=== PATIENT | male | born 1990 | race African-American/Black ===

== ENCOUNTER 2017-09-09 23:40 | Emergency (ER) | payer OTHER, MEDICAID ==
[2017-09-09 23:56] VITALS: BP 147/78
[2017-09-10] MEDS ORDERED: NS 1000 ML 1,000 ML IV SCH (01:00)
[2017-09-10 01:02] LABS: BASOPHILS % (AUTO) 0.5 % (0.2-1.0); EOSINOPHILS % (AUTO) 0.5 % (0.9-2.9); HEMATOCRIT 43.8 % (42.0-54.0); HEMOGLOBIN 15.1 g/dL (13.5-18.0); MEAN CORPUSCULAR HEMOGLOBIN 33.8 pg (27.0-34.0); MEAN CORPUSCULAR HGB CONC 34.5 g/dL (33.0-35.0); MEAN CORPUSCULAR VOLUME 98.2 fL (80.0-100.0); MONOCYTES # (AUTO) 0.3 x10^3/uL (0.3-0.8); MONOCYTES % (AUTO) 5.9 % (0.0-13.0); NEUTROPHILS # (AUTO) 3.8 x10^3/uL (2.2-4.8); NEUTROPHILS % (AUTO) 74.1 % (42.0-75.0); PLATELET COUNT 200 X10^3/uL (150.0-450.0); RED BLOOD COUNT 4.46 X10^6/uL (4.7-6.0); RED CELL DISTRIBUTION WIDTH 12.6 % (11.6-16.5); WHITE BLOOD COUNT 5.1 X10^3/uL (3.6-10.0)
[2017-09-10 01:07] LABS: BLOOD UREA NITROGEN 4 mg/dL (7-18); CALCIUM 8.8 mg/dL (8.5-10.1); CARBON DIOXIDE 28.4 mmol/L (21-32); CHLORIDE 98 mmol/L (98-107); CREATININE 0.47 mg/dL (0.70-1.30); SODIUM 137 mmol/L (136-145); eGFR BLACK RACES > 60 (>60); eGFR NON BLACK RACES > 60 (>60)
--- NOTE | 2017-09-10 01:15 | DR.GENAD ---
HPI - Complaint/Symptoms Chief Complaint Doctors Comments: Patient presented to the ED Via EMS secondary to a seizure noted at home. Mom reports that he has taken his last phenytoin anticonvulsant. She denies fever. 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 Chief Complaint:: SEIZURES - Source History Provided: Parent - Mode of Arrival Mode of Arrival: EMS - Timing Onset of Chief Complaint: 09/09/17 PMH - PMH Past Medical History: Yes Past Medical History: Seizures Past Medical History Comment: CEREBRAL PALSY Past Surgical History: Yes Surgical History: Ortho Surgery, Other Past Surgical History Comment: PEG TUBE; BACK SURGERY; LEG SURGERY - Family History History of Family Medical Conditions: No Family Medical History: Diabetes Mellitus - Social History Does patient currently use any type of tobacco product: No Have you used tobacco products in the last 12 months: No Type of Tobacco Use: None Alcohol Use: None Do you use any recreational Drugs:: No Lives With: Mom Lives Where: Home - infectious screening In the last 2 months have you had wt loss of >10#?: NO Have you had fever, night sweats or hemotysis?: No Have you traveled outside the country in the last 6 months?: No Isolation: Standard ROS - Review of Systems Constitutional: No Symptoms Reported Eyes: No Symptoms Reported ENTM: No Symptoms Reported Respiratoy: No Symptoms Reported Cardiovascular: No Symptoms Reported Gastrointestinal/Abdominal: No Symptoms Reported Genitourinary: No Symptoms Reported Neurological: Seizure Musculoskeletal: Other (contractures of extremities both upper and lower) Integumentary: No Symptoms Reported Hematologic/Lymphatic: No Symptoms Reported Endocrine: No Symptoms Reported Psychiatric: No Symptoms Reported All Other Systems: Reviewed and Negative PE - Vital Signs Vitals: Temperature 100.5 F Pulse Rate 108 Respiratory Rate 25 Blood Pressure [Left Arm] 114/78 Blood Pressure [Left Calf] 130/84 Blood Pressure 147/78 - General Limitations: No Limitations General Appearance: Alert, In No Apparent Distress - Head Head Exam: Normal Inspection, Atraumatic - Eyes Eye exam: Normal Appearance, PERRL, EOMI - ENT ENT Exam: Normal Exam External Ear Exam: Normal External Inspection TM/Canal Exam: Bilateral Normal Nose Exam: Normal Nose Exam Mouth Exam: Normal Inspection Throat Exam: Normal Inspection - Neck Neck Exam: Normal Inspection, Full ROM - Chest Chest Inspection: Normal Inspection - Respiratory Respiratory Exam: Normal Lung Sounds Bilat Respiratory Exam: Bilateral Clear to Auscultation - Cardiovascular Cardiovascular Exam: Regular Rate, Normal Rhythm - Abdominal Exam Abdominal Exam: Normal Inspection, Normal Bowel Sounds Abdominal Tenderness: negative: RUQ, RLQ, LUQ, LLQ, Epigastrium, Suprapubic, Diffuse, Mild, Moderate, Severe, Other - Extremities Extremities Exam: Normal Capillary Refill - Back Back Exam: Normal Inspection - Neurologic Neurological Exam: Oriented X3, CN II-XII Intact - Psychiatric Psychiatric Exam: Normal Affect, Normal Mood - Skin Skin Exam: Warm, Dry, Intact Course - Reevaluation 1st: Improved ROR - Labs Reviewed Result Diagrams: 09/10/17 00:45 09/10/17 00:45 Laboratory: WBC 5.1 X10^3/uL (3.6-10.0) 09/10/17 00:45 RBC 4.46 X10^6/uL (4.7-6.0) L 09/10/17 00:45 Hgb 15.1 g/dL (13.5-18.0) 09/10/17 00:45 Hct 43.8 % (42.0-54.0) 09/10/17 00:45 MCV 98.2 fL (80.0-100.0) 09/10/17 00:45 MCH 33.8 pg (27.0-34.0) 09/10/17 00:45 MCHC 34.5 g/dL (33.0-35.0) 09/10/17 00:45 RDW 12.6 % (11.6-16.5) 09/10/17 00:45 Plt Count 200 X10^3/uL (150.0-450.0) 09/10/17 00:45 MPV 8.0 fL (7.4-11.0) 09/10/17 00:45 Neut % 74.1 % (42.0-75.0) 09/10/17 00:45 Lymph % 19.0 % (21.0-51.0) L 09/10/17 00:45 [place] % 5.9 % (0.0-13.0) 09/10/17 00:45 Eos % 0.5 % (0.9-2.9) L 09/10/17 00:45 Baso % 0.5 % (0.2-1.0) 09/10/17 00:45 Neut # 3.8 x10^3/uL (2.2-4.8) 09/10/17 00:45 Lymph # 1.0 X10^3/uL (1.3-2.9) L 09/10/17 00:45 [place] # 0.3 x10^3/uL (0.3-0.8) 09/10/17 00:45 Eos # 0.0 x10^3/uL (0.0-0.2) 09/10/17 00:45 Baso # 0.0 X10^3/uL (0.0-0.1) 09/10/17 00:45 Absolute Nucleated RBC 0.0 /100WBC 09/10/17 00:45 Sodium 137 mmol/L (136-145) 09/10/17 00:45 Corrected Sodium TNP 09/10/17 00:45 Potassium 3.5 mmol/L (3.5-5.1) 09/10/17 00:45 Chloride 98 mmol/L (98-107) 09/10/17 00:45 Carbon Dioxide 28.4 mmol/L (21-32) 09/10/17 00:45 BUN 4 mg/dL (7-18) L 09/10/17 00:45 Creatinine 0.47 mg/dL (0.70-1.30) L 09/10/17 00:45 Est GFR (MDRD) Af Amer > 60 (>60) 09/10/17 00:45 Est GFR (MDRD) Non-Af > 60 (>60) 09/10/17 00:45 Glucose 105 mg/dL (65-99) H 09/10/17 00:45 Calcium 8.8 mg/dL (8.5-10.1) 09/10/17 00:45 - Diagnosis Discharge Problem: Seizure disorder - Discharge Plan Condition: Stable - Follow ups/Referrals Follow ups/Referrals: TAMIKO AMOS [Primary Care Provider] - 3 days - Instructions
[2017-09-10] MEDS ORDERED: DILANTIN INJ 100 MG VIAL IVP ONE ×3 (02:27→03:26)
[2017-09-10] MEDS ORDERED: ATIVAN INJ 2 MG VIAL ONE (03:13)
[2017-09-10] MEDS ORDERED: ATIVAN INJ 2 MG VIAL IVP ONE ×2 (03:16→03:20)
[2017-09-10] MEDS ORDERED: CEREBYX INJ IVP ONE (03:24)
[2017-09-10] MEDS ORDERED: CEREBYX INJ ONE (03:30)
[2017-09-10] MEDS ORDERED: NS 50 ML IV 50 ML IV ONE (03:31)
== END 2017-09-10 04:14 | disposition home or self-care (01) ==
LOC: ER 23:44
DX: G40.909 Epilepsy, unspecified, not intractable, without status epilepticus (principal)
CPT/HCPCS: 36415; 36591; 80048; 80185; 85025; 96365; 99282; 99283; A4222; S0078; J1165; J2060

== ENCOUNTER 2017-09-18 13:49 | Emergency (ER) | payer OTHER, MEDICAID ==
[2017-09-18 13:59] VITALS: BMI 22.9
[2017-09-18] MEDS ORDERED: ATIVAN INJ 2 MG VIAL IVP ONE (13:59)
[2017-09-18] MEDS ORDERED: ATIVAN INJ 2 MG VIAL ONE (14:00)
[2017-09-18] MEDS ORDERED: CEREBYX INJ IVP ONE (14:01)
--- NOTE | 2017-09-18 14:06 | DR.SEIZA ---
HPI - Time Seen Time seen: 13:55 - Primary Care Physician Primary Care Physician: ahmet - Complaints Chief Complaint:: EMS stated "The family stated he had numerous seizures that started last night. They gave him all his medications(keppra,phenobarbitol, carbamazepine and valium) Upon our arrival, the patient was postictial lasting approx 25 minutes." - Source History Provided: Guardian, EMS - Mode of Arrival Mode of Arrival: EMS - Timing Onset of Chief Complaint: 09/17/17 PMH - PMH Past Medical History: Yes Past Medical History: Seizures Past Medical History Comment: cerebral palsy Past Surgical History: Yes Surgical History: Ortho Surgery, Other Past Surgical History Comment: peg tube, port-a-cath - Family History History of Family Medical Conditions: Yes Family Medical History: Diabetes Mellitus - Social History Does patient currently use any type of tobacco product: No Have you used tobacco products in the last 12 months: No Does any household member use tobacco: No Do you use any recreational Drugs:: No Lives With: Family - infectious screening In the last 2 months have you had wt loss of >10#?: NO Have you had fever, night sweats or hemotysis?: No Have you traveled outside the country in the last 6 months?: No Isolation: Standard ROS - Review of Systems Eyes: No Symptoms Reported ENTM: No Symptoms Reported Respiratoy: No Symptoms Reported Cardiovascular: No Symptoms Reported Gastrointestinal/Abdominal: No Symptoms Reported Genitourinary: No Symptoms Reported Neurological: Seizure, Other (non ambulatory) Musculoskeletal: Other (contractures of extremities) Integumentary: No Symptoms Reported Hematologic/Lymphatic: No Symptoms Reported Endocrine: No Symptoms Reported Psychiatric: No Symptoms Reported All Other Systems: Reviewed and Negative PE - Vital Signs Vitals: Temperature 98.0 F Pulse Rate [Left Popliteal] 84 Pulse Rate 132 Respiratory Rate 18 Blood Pressure [Left Arm] 114/78 Blood Pressure [Left Calf] 100/58 Blood Pressure 141/92 O2 Sat by Pulse Oximetry 94 - General Limitations: No Limitations General Appearance: Alert - Head Head Exam: Normal Inspection, Atraumatic Head Exam Physical: Laceration - Eyes Eye exam: Normal Appearance, PERRL, EOMI Eyelids: Normal Inspection: Bilateral Pupils: Regular, Round: Bilateral Sclera/Conjunctival: Normal Inspection: Bilateral Anterior Chamber: Normal Inspection: Bilateral - ENT ENT Exam: Normal Exam, Normal Oropharynx Mouth Exam: Normal Inspection. negative: Drooling, Trismus - Neck Neck Exam: Normal Inspection, Full ROM - Chest Chest Inspection: Normal Inspection - Respiratory Respiratory Exam: Normal Lung Sounds Bilat Respiratory Exam: Bilateral Clear to Auscultation - Cardiovascular Cardiovascular Exam: Regular Rate, Normal Rhythm - Abdominal Exam Abdominal Exam: Normal Inspection, Normal Bowel Sounds Abdominal Tenderness: Other (non reported) - Extremities Extremities Exam: Other (dysmorphic bilaterally) - Back Back Exam: Normal Inspection - Neurologic Neurological Exam: Alert Cerebellar Function: Other (non ambulatory) - Psychiatric Psychiatric Exam: Normal Affect, Normal Mood - Skin Skin Exam: Warm, Dry, Intact Course - Treatment Treatment: phosphentoin 1gm IV, advised mom to increase Keppra to one additional gram per day to rase drug level. Appointment made for next week with Dr Gates - Reevaluation 1st: Improved ROR - Labs Reviewed Laboratory Results Reviewed?: Yes (phenytoin 1.2mcg/L) Result Diagrams: 09/18/17 14:04 09/18/17 14:04 Laboratory: WBC 5.4 X10^3/uL (3.6-10.0) 09/18/17 14:04 RBC 4.53 X10^6/uL (4.7-6.0) L 09/18/17 14:04 Hgb 15.3 g/dL (13.5-18.0) 09/18/17 14:04 Hct 44.2 % (42.0-54.0) 09/18/17 14:04 MCV 97.8 fL (80.0-100.0) 09/18/17 14:04 MCH 33.9 pg (27.0-34.0) 09/18/17 14:04 MCHC 34.7 g/dL (33.0-35.0) 09/18/17 14:04 RDW 12.9 % (11.6-16.5) 09/18/17 14:04 Plt Count 233 X10^3/uL (150.0-450.0) 09/18/17 14:04 MPV 7.4 fL (7.4-11.0) 09/18/17 14:04 Neut % 45.4 % (42.0-75.0) 09/18/17 14:04 Lymph % 44.0 % (21.0-51.0) 09/18/17 14:04 [place] % 8.0 % (0.0-13.0) 09/18/17 14:04 Eos % 2.1 % (0.9-2.9) 09/18/17 14:04 Baso % 0.5 % (0.2-1.0) 09/18/17 14:04 Neut # 2.5 x10^3/uL (2.2-4.8) 09/18/17 14:04 Lymph # 2.4 X10^3/uL (1.3-2.9) 09/18/17 14:04 [place] # 0.4 x10^3/uL (0.3-0.8) 09/18/17 14:04 Eos # 0.1 x10^3/uL (0.0-0.2) 09/18/17 14:04 Baso # 0.0 X10^3/uL (0.0-0.1) 09/18/17 14:04 Absolute Nucleated RBC 0.1 /100WBC 09/18/17 14:04 Sodium 136 mmol/L (136-145) 09/18/17 14:04 Corrected Sodium 137 mmol/L (136-145) 09/18/17 14:04 Potassium 3.6 mmol/L (3.5-5.1) 09/18/17 14:04 Chloride 98 mmol/L (98-107) 09/18/17 14:04 Carbon Dioxide 28.7 mmol/L (21-32) 09/18/17 14:04 BUN 3 mg/dL (7-18) L 09/18/17 14:04 Creatinine 0.60 mg/dL (0.70-1.30) L 09/18/17 14:04 Est GFR (MDRD) Af Amer > 60 (>60) 09/18/17 14:04 Est GFR (MDRD) Non-Af > 60 (>60) 09/18/17 14:04 Glucose 134 mg/dL (65-99) H 09/18/17 14:04 Calcium 8.6 mg/dL (8.5-10.1) 09/18/17 14:04 Corrected Calcium TNP 09/18/17 14:04 Total Bilirubin 0.20 mg/dL (0.2-1.0) 09/18/17 14:04 AST 18 Units/L (15-37) 09/18/17 14:04 ALT 38 Units/L (12-78) 09/18/17 14:04 Alkaline Phosphatase 57 Units/L (46-116) 09/18/17 14:04 C-Reactive Protein 13.90 mg/L (0-3.0) H 09/18/17 14:04 Total Protein 8.1 g/dL (6.4-8.2) 09/18/17 14:04 Albumin 3.7 g/dL (3.4-5.0) 09/18/17 14:04 Globulin 4.4 g/dL (2.5-4.5) 09/18/17 14:04 Albumin/Globulin Ratio 0.8 Ratio (1.1-2.1) L 09/18/17 14:04 Phenytoin 1.2 ug/mL (10-20) L 09/18/17 14:04 Carbamazepine 9.2 ug/mL (4-12) 09/18/17 14:04 - Diagnosis Discharge Problem: Subtherapeutic phenytoin level - Discharge Plan Condition: Stable - Follow ups/Referrals Follow ups/Referrals: TAMIKO AMOS [Primary Care Provider] - 3 days - Instructions Instructions: Epilepsy
[2017-09-18] MEDS ORDERED: CEREBYX INJ ONE (14:09)
[2017-09-18] MEDS ORDERED: NS 100 ML IV 100 ML IV ONE (14:09)
[2017-09-18 14:13] LABS: BASOPHILS % (AUTO) 0.5 % (0.2-1.0); EOSINOPHILS # (AUTO) 0.1 x10^3/uL (0.0-0.2); EOSINOPHILS % (AUTO) 2.1 % (0.9-2.9); HEMATOCRIT 44.2 % (42.0-54.0); HEMOGLOBIN 15.3 g/dL (13.5-18.0); LYMPHOCYTES # (AUTO) 2.4 X10^3/uL (1.3-2.9); MEAN CORPUSCULAR HEMOGLOBIN 33.9 pg (27.0-34.0); MEAN CORPUSCULAR HGB CONC 34.7 g/dL (33.0-35.0); MEAN CORPUSCULAR VOLUME 97.8 fL (80.0-100.0); MEAN PLATELET VOLUME 7.4 fL (7.4-11.0); MONOCYTES # (AUTO) 0.4 x10^3/uL (0.3-0.8); NEUTROPHILS # (AUTO) 2.5 x10^3/uL (2.2-4.8); NEUTROPHILS % (AUTO) 45.4 % (42.0-75.0); PLATELET COUNT 233 X10^3/uL (150.0-450.0); RED BLOOD COUNT 4.53 X10^6/uL (4.7-6.0); RED CELL DISTRIBUTION WIDTH 12.9 % (11.6-16.5); WHITE BLOOD COUNT 5.4 X10^3/uL (3.6-10.0)
[2017-09-18 14:27] LABS: ALANINE AMINOTRANSFERASE 38 Units/L (12-78); ALBUMIN 3.7 g/dL (3.4-5.0); ALKALINE PHOSPHATASE 57 Units/L (46-116); ASPARTATE AMINO TRANSFERASE 18 Units/L (15-37); BLOOD UREA NITROGEN 3 mg/dL (7-18); CALCIUM 8.6 mg/dL (8.5-10.1); CARBON DIOXIDE 28.7 mmol/L (21-32); CHLORIDE 98 mmol/L (98-107); COR NA(FOR HYPERGLY) 137 mmol/L (136-145); SODIUM 136 mmol/L (136-145); TOTAL PROTEIN 8.1 g/dL (6.4-8.2); eGFR BLACK RACES > 60 (>60); eGFR NON BLACK RACES > 60 (>60)
[2017-09-18 16:11] VITALS: BP 100/58
== END 2017-09-18 17:06 | disposition home or self-care (01) ==
LOC: ER 14:00
DX: R79.1 Abnormal coagulation profile (principal)
CPT/HCPCS: 36415; 80053; 80156; 80185; 85025; 86140; 96365; 96367; 96374; 96375; 99283; S0078; J2060

== ENCOUNTER 2018-03-21 22:37 | Inpatient (IN) | payer OTHER, MEDICAID ==
--- NOTE | 2018-03-21 23:16 | DR.SEIZA ---
HPI - Time Seen Time seen: 11:03 - Primary Care Physician Primary Care Physician: TAMIKO AMOS - Complaints Chief Complaint Doctors Comments: As noted in nurses's notes. Hx. was obtained from the pt's. mom as he is non-verbal due to chronic medical problem. Reportedly, he has not had a fever, of course they didn;t check his temp. at home. Chief Complaint:: EMS RESPONDED TO PT HAVING SEIZURE ACTIVITY SEVERAL TIMES TO DAY PER MOTHER. MOTHER 1-2 DURING THE DAY TIME THEN CLOSER IT GOT TO NIGHT HE HAD UP TO 20 TIMES. SHRAV[facility] BELLE EMT STATED THAT ON THE RIDE IN HE DID NOT NOTICE ANY SEIZURE ACTIVITYY. PT IS PARAPLEGIC. - Reviewed Nurses Notes Reviewed: Yes - Source History Provided: Patient - Mode of Arrival Mode of Arrival: EMS - Timing Onset of Chief Complaint: 03/21/18 PMH - PMH Past Medical History: Yes Past Medical History: Seizures Past Surgical History: Yes Surgical History: Ortho Surgery - Family History History of Family Medical Conditions: Yes Family Medical History: Diabetes Mellitus, Hypertension - Social History Does any household member use tobacco: No Alcohol Use: None Do you use any recreational Drugs:: No Lives With: Family Lives Where: Home - infectious screening In the last 2 months have you had wt loss of >10#?: NO Have you had fever, night sweats or hemotysis?: No Have you traveled outside the country in the last 6 months?: No Isolation: Standard ROS - Review of Systems Constitutional: No Symptoms Reported Eyes: No Symptoms Reported ENTM: No Symptoms Reported Respiratoy: No Symptoms Reported Cardiovascular: No Symptoms Reported Gastrointestinal/Abdominal: No Symptoms Reported Genitourinary: No Symptoms Reported Neurological: Seizure Musculoskeletal: No Symptoms Reported Integumentary: No Symptoms Reported Hematologic/Lymphatic: No Symptoms Reported Endocrine: No Symptoms Reported Psychiatric: No Symptoms Reported All Other Systems: Reviewed and Negative PE - Vital Signs Vitals: Pulse Rate 106 Respiratory Rate 20 Blood Pressure [Left Arm] 114/78 Blood Pressure [Left Calf] 100/58 Blood Pressure 92/46 O2 Sat by Pulse Oximetry 100 - General Limitations: No Limitations, Physical Limitation General Appearance: Alert, In No Apparent Distress, Cachectic - Head Head Exam: Normal Inspection - Eyes Eye exam: Normal Appearance, PERRL - ENT ENT Exam: Normal Exam - Neck Neck Exam: Normal Inspection, Trachea Midline - Chest Chest Inspection: Normal Inspection - Respiratory Respiratory Exam: Normal Lung Sounds Bilat - Cardiovascular Cardiovascular Exam: Regular Rate, Normal Rhythm, +S1, +S2 - Abdominal Exam Abdominal Exam: Normal Inspection, Normal Bowel Sounds, Soft, Other (npted with feeding tube ) - Extremities Extremities Exam: Other (flexion deformity the elbows anf wrists, atrophy off the lower limbs) - Back Back Exam: Normal Inspection - Neurologic Neurological Exam: Alert - Psychiatric Psychiatric Exam: Normal Affect, Normal Mood - Skin Skin Exam: Warm Course - Reevaluation 1st: Improved - Consultation Called: 00:58 Call Returned: 12:00 Consultation Comments: Dr. Eagle agrees to recommendation for in house monitoring - Education/Counseling Education/Counseling: Patient, Family, Education, Counseling Educated On: Treatment, Diagnosis, Prognosis, Needs for Follow Up ROR - Labs Reviewed Result Diagrams: 03/22/18 00:04 03/21/18 23:39 Laboratory: WBC 5.4 X10^3/uL (3.6-10.0) 03/22/18 00:04 RBC 4.92 X10^6/uL (4.7-6.0) 03/22/18 00:04 Hgb 16.2 g/dL (13.5-18.0) 03/22/18 00:04 Hct 47.8 % (42.0-54.0) 03/22/18 00:04 MCV 97.3 fL (80.0-100.0) 03/22/18 00:04 MCH 33.0 pg (27.0-34.0) 03/22/18 00:04 MCHC 34.0 g/dL (33.0-35.0) 03/22/18 00:04 RDW 13.5 % (11.6-16.5) 03/22/18 00:04 Plt Count 265 X10^3/uL (150.0-450.0) 03/22/18 00:04 MPV 8.0 fL (7.4-11.0) 03/22/18 00:04 Neut % (Auto) 78.7 % (42.0-75.0) H 03/22/18 00:04 Lymph % (Auto) 15.4 % (21.0-51.0) L 03/22/18 00:04 [place] % (Auto) 5.1 % (0.0-13.0) 03/22/18 00:04 Eos % (Auto) 0.2 % (0.9-2.9) L 03/22/18 00:04 Baso % (Auto) 0.6 % (0.2-1.0) 03/22/18 00:04 Neut # (Auto) 4.3 x10^3/uL (2.2-4.8) 03/22/18 00:04 Lymph # (Auto) 0.8 X10^3/uL (1.3-2.9) L 03/22/18 00:04 [place] # (Auto) 0.3 x10^3/uL (0.3-0.8) 03/22/18 00:04 Eos # (Auto) 0.0 x10^3/uL (0.0-0.2) 03/22/18 00:04 Baso # (Auto) 0.0 X10^3/uL (0.0-0.1) 03/22/18 00:04 Absolute Nucleated RBC 0.0 /100WBC 03/22/18 00:04 Sodium 137 mmol/L (136-145) 03/21/18 23:39 Corrected Sodium TNP 03/21/18 23:39 Potassium 3.9 mmol/L (3.5-5.1) 03/21/18 23:39 Chloride 100 mmol/L (98-107) 03/21/18 23:39 Carbon Dioxide 28.7 mmol/L (21-32) 03/21/18 23:39 BUN 4 mg/dL (7-18) L 03/21/18 23:39 Creatinine 0.26 mg/dL (0.70-1.30) L 03/21/18 23:39 Est GFR (MDRD) Af Amer > 60 (>60) 03/21/18 23:39 Est GFR (MDRD) Non-Af > 60 (>60) 03/21/18 23:39 Glucose 94 mg/dL (65-99) 03/21/18 23:39 Calcium 8.3 mg/dL (8.5-10.1) L 03/21/18 23:39 Corrected Calcium TNP 03/21/18 23:39 Total Bilirubin 0.20 mg/dL (0.2-1.0) 03/21/18 23:39 AST 19 Units/L (15-37) 03/21/18 23:39 ALT 33 Units/L (12-78) 03/21/18 23:39 Alkaline Phosphatase 49 Units/L (46-116) 03/21/18 23:39 Total Protein 8.2 g/dL (6.4-8.2) 03/21/18 23:39 Albumin 3.5 g/dL (3.4-5.0) 03/21/18 23:39 Globulin 4.7 g/dL (2.5-4.5) H 03/21/18 23:39 Albumin/Globulin Ratio 0.7 Ratio (1.1-2.1) L 03/21/18 23:39 Phenobarbital 43.5 ug/mL (15-40) H 03/21/18 23:39 - XRAY XRAY Interpreted by: Radiologist (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 no evidence for acute intracranial abnormality.) - Diagnosis Discharge Problem: Seizure disorder - Discharge Plan Disposition: 01 HOME, SELF-CARE Condition: Stable - Follow ups/Referrals Follow ups/Referrals: TAMIKO AMOS [Primary Care Provider] - 3 days - Instructions Instructions: Epilepsy, [id number]
[2018-03-22 00:25] LABS: ALANINE AMINOTRANSFERASE 33 Units/L (12-78); ALBUMIN 3.5 g/dL (3.4-5.0); ALKALINE PHOSPHATASE 49 Units/L (46-116); ASPARTATE AMINO TRANSFERASE 19 Units/L (15-37); BLOOD UREA NITROGEN 4 mg/dL (7-18); CALCIUM 8.3 mg/dL (8.5-10.1); CARBON DIOXIDE 28.7 mmol/L (21-32); CHLORIDE 100 mmol/L (98-107); CREATININE 0.26 mg/dL (0.70-1.30); SODIUM 137 mmol/L (136-145); TOTAL PROTEIN 8.2 g/dL (6.4-8.2); eGFR BLACK RACES > 60 (>60); eGFR NON BLACK RACES > 60 (>60)
[2018-03-22 00:27] LABS: BASOPHILS % (AUTO) 0.6 % (0.2-1.0); EOSINOPHILS % (AUTO) 0.2 % (0.9-2.9); HEMATOCRIT 47.8 % (42.0-54.0); HEMOGLOBIN 16.2 g/dL (13.5-18.0); LYMPHOCYTES # (AUTO) 0.8 X10^3/uL (1.3-2.9); LYMPHOCYTES % (AUTO) 15.4 % (21.0-51.0); MEAN CORPUSCULAR VOLUME 97.3 fL (80.0-100.0); MONOCYTES # (AUTO) 0.3 x10^3/uL (0.3-0.8); MONOCYTES % (AUTO) 5.1 % (0.0-13.0); NEUTROPHILS # (AUTO) 4.3 x10^3/uL (2.2-4.8); NEUTROPHILS % (AUTO) 78.7 % (42.0-75.0); PLATELET COUNT 265 X10^3/uL (150.0-450.0); RED BLOOD COUNT 4.92 X10^6/uL (4.7-6.0); RED CELL DISTRIBUTION WIDTH 13.5 % (11.6-16.5); WHITE BLOOD COUNT 5.4 X10^3/uL (3.6-10.0)
--- NOTE | 2018-03-22 00:46 | CT ---
CT head without contrast Indication: Seizure activity Comparison: None Technique: CT images of the head were obtained without contrast. Automatic exposure control was utili Who Can Fix My Card. Findings: There is severe bifrontal encephalomalacia with associated ex vacuo ventricular dilatation. The lateral ventricular temporal horns, 3rd ventricle, and 4th ventricle are not significantly dilat ed. There is no midline shift. No acute bleed or generalized edema is observed. Small amount of fluid is present within both mastoid air cells inferiorly. There is minimal fluid within the sphenoid sinu ses. No acute skeletal abnormality identified. 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 Comparison with any available imagin g is recommended. No evidence for acute intracranial abnormality. Small amount of fluid within the mastoid air cells. Minimal sphenoid sinusitis. Reported By:
[2018-03-22] MEDS ORDERED: NS 500 ML IV 500 ML IV ONE (01:09)
[2018-03-22] MEDS ORDERED: ATIVAN INJ 2 MG VIAL ONE (01:10)
[2018-03-22] MEDS: ATIVAN INJ 2 MG VIAL IVP PRN ×3 (01:10→13:13)
--- NOTE | 2018-03-22 01:50 | RAD ---
Chest, AP Indication: Seizure activity Comparison: 09/03/2016 Findings: Evaluation of the lungs is somewhat limited by patient positioning/posture. There is marked thoracolumbar levoscoliosis with bilateral Branham rods noted. The lungs are mildly hypoinflated, but grossly clear. No significant pleural effusion. Cardiac silhouette size is within normal limits. Right subclavian approach Port-A-Cath is grossly stable. Mild gas dilatation of the large and small bowel loops noted. Impression: No acute chest process or significant change from prior. Reported By:
[2018-03-22] MEDS: NS 1000 ML 1,000 ML IV SCH ×3 (02:23→15:15)
[2018-03-22 02:45] LABS: BILIRUBIN,URINE NEGATIVE (NEGATIVE); BLOOD/HEMOGLOBIN,URINE NEGATIVE (NEGATIVE); GLUCOSE, URINE NEGATIVE (NEGATIVE); KETONES,URINE NEGATIVE (NEGATIVE); LEUKOCYTE ESTERASE ,URINE NEGATIVE (NEGATIVE); NITRITES,URINE NEGATIVE (NEGATIVE); PROTEIN,URINE NEGATIVE (NEGATIVE); UROBILINOGEN,URINE NORMAL (NORMAL)
[2018-03-22 02:50] LABS: APPEARANCE,URINE CLEAR (CLEAR); COLOR,URINE YELLOW (YELLOW)
[2018-03-22] MEDS: TYLENOL SUPP 650 MG PR PRN ×2 (03:15→20:17)
[2018-03-22] MEDS: LEVETIRACETAM GT SCH ×2 (08:00→20:16)
[2018-03-22] MEDS: CARBAMAZEPINE GT SCH ×2 (08:00→20:13)
--- NOTE | 2018-03-22 08:07 | DR.H&P ---
H&P - History & Physical for Day of: H&P Date: 03/22/18 - Chief Complaint Chief Complaint: seizure - Allergies Allergies/Adverse Reactions: Allergies Allergy/AdvReac Type Severity Reaction Status Date / Time Sulfa (Sulfonamide Allergy Verified 09/10/17 00:14 Antibiotics) [SULFA] - History of Present Illness History of Present Illness: PT IT 30 BM ER ADMISSION AFTER PRESENTING WITH EMS FAMILY CO MULTIPLE SEIZURES. PT HAS CP, BED CONFINED, REOCCURRING URI, CHRONIC UTIS, SEIZURE DISORDER. PT IS ON KEPPRA, DILANTIN AND HAS DIASTAT RECTAL FOR ACTIVE SEIZURES. PT HAD CT HEAD IN ED REVEALING SINUSITIS. PT ADMITTED FOR EVALUATION - Past Medical History Past Medical History: Asthma, Seizures Additional Medical History: CERBRAL PALSY. ASTHMA. AR. SCOLIOSIS - Past Surgical History Surgical History: Ortho Surgery, Other - Family History Family Medical History: Diabetes Mellitus, PA, Hypertension - Social History Does patient currently use any type of tobacco product: No Have you used tobacco products in the last 12 months: No Type of Tobacco Use: None Does any household member use tobacco: No Alcohol Use: None Drug Use: None - Review of Systems Constitutional: Weakness Eyes: No Symptoms Reported ENT: Nose Discharge, Nose Congestion Respiratory: Sputum Cardiovascular: No Symptoms Reported Gastrointestinal: No Symptoms Reported Genitourinary: Incontinence Musculoskeletal: No Symptoms Reported Skin: No Symptoms Reported Neurological: Seizures - Physical Exam Vital Signs: Temperature 99.1 F Pulse Rate [Left Brachial] 96 Pulse Rate 106 Respiratory Rate 24 Blood Pressure [Left Arm] 95/63 Blood Pressure [Left Calf] 100/58 Blood Pressure 92/46 O2 Sat by Pulse Oximetry 95 Oriented: Other (APHASIC) Eyes: Normal Ear: Normal Nose: Discharge Throat: Red Respiratory: Rhonchi Throughout, RLL Diminished, LLL Diminished Cardiovascular: Normal : Normal Auscultation: Bowel Sounds: Normal Palpation: Normal Tenderness: Normal Skin: Normal Musculoskeletal: Deformity, Motor Deficit Mood Description: Flat Speech Pattern: Aphasic - Assessment/Plan (1) Seizure disorder Status: Acute Plan: ADMIT, SEIZURE PRECAUTIONS. ADMISSION LABS, CULTURES. IV ROCEPHIN. KEPPRA LEVELS, ELEVATED PHENOBARBITAL LEVELS. 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
[2018-03-22 08:59] LABS: BASOPHILS # (AUTO) 0.1 X10^3/uL (0.0-0.1); BASOPHILS % (AUTO) 0.8 % (0.2-1.0); HEMATOCRIT 39.1 % (42.0-54.0); LYMPHOCYTES # (AUTO) 1.2 X10^3/uL (1.3-2.9); LYMPHOCYTES % (AUTO) 11.8 % (21.0-51.0); MEAN CORPUSCULAR HEMOGLOBIN 32.7 pg (27.0-34.0); MEAN CORPUSCULAR HGB CONC 34.2 g/dL (33.0-35.0); MEAN CORPUSCULAR VOLUME 95.8 fL (80.0-100.0); MEAN PLATELET VOLUME 8.3 fL (7.4-11.0); MONOCYTES # (AUTO) 0.5 x10^3/uL (0.3-0.8); MONOCYTES % (AUTO) 5.1 % (0.0-13.0); NEUTROPHILS # (AUTO) 8.5 x10^3/uL (2.2-4.8); NEUTROPHILS % (AUTO) 82.3 % (42.0-75.0); PLATELET COUNT 216 X10^3/uL (150.0-450.0); RED BLOOD COUNT 4.08 X10^6/uL (4.7-6.0); RED CELL DISTRIBUTION WIDTH 13.7 % (11.6-16.5); WHITE BLOOD COUNT 10.4 X10^3/uL (3.6-10.0)
[2018-03-22] MEDS ORDERED: PHENOBARBITAL GT SCH (09:00)
[2018-03-22 09:01] LABS: BLOOD UREA NITROGEN 3 mg/dL (7-18); CALCIUM 8.1 mg/dL (8.5-10.1); eGFR BLACK RACES > 60 (>60); eGFR NON BLACK RACES > 60 (>60)
[2018-03-22] MEDS ORDERED: NS 100 ML IV 100 ML IV ONE (10:37)
[2018-03-22] MEDS ORDERED: ROCEPHIN VIAL 1 GM ONE (10:38)
[2018-03-22] MEDS: ROCEPHIN VIAL 1 GM 1 GM in NS 100 ML IV + SPIKE MINIBAG* 100 ML IV SCH ×2 (10:59→11:02)
[2018-03-22 11:46] LABS: ALANINE AMINOTRANSFERASE 27 Units/L (12-78); ALBUMIN 3.2 g/dL (3.4-5.0); ALKALINE PHOSPHATASE 40 Units/L (46-116); ASPARTATE AMINO TRANSFERASE 16 Units/L (15-37); CARBON DIOXIDE 27.4 mmol/L (21-32); CHLORIDE 103 mmol/L (98-107); COR CA(FOR HYPOALB) 8.7 mg/dL (8.5-10.1); CREATININE 0.33 mg/dL (0.70-1.30); SODIUM 139 mmol/L (136-145); TOTAL PROTEIN 7.5 g/dL (6.4-8.2)
[2018-03-22 11:58] LABS: HEMOGLOBIN 13.4 g/dL (13.5-18.0)
--- NOTE | 2018-03-22 12:11 | RAD ---
Examination: KUB History: Constipation Findings: There is a large amount of formed stool distending the rectosigmoid. There is moderate gase ous dilatation of small and large bowel proximal to this. No mass formation or unusual calcification or ascites is demonstrated. Marked spinal and pelvic deformity again noted. Surgical rods noted in th oracolumbar spine. Impression: Findings consistent with constipation and possible fecal impaction. A definite mechanical obstruction is not identified. Reported By:
[2018-03-22 15:42] VITALS: BMI 25.6
[2018-03-22] MEDS ORDERED: POTASSIUM CHL 60 MEQ/NS 0.45% 500 ML IV PRN (19:09)
[2018-03-22] MEDS ORDERED: K-LYTE EFFERVESCENT PO PRN (19:09)
[2018-03-22] MEDS ORDERED: POTASSIUM CHL 40 MEQ/NS 0.45% 500 ML IV PRN (19:09)
[2018-03-22] MEDS: PATIENT'S HOME MEDICATION PO SCH (20:15)
[2018-03-22] MEDS: MILK OF MAGNESIA PO SCH (20:16)
[2018-03-22] MEDS: MAGNESIUM SULFATE 1 GM/100 mL PREMIX 1 GM/100 ML BAG IV PRN ×2 (20:21→21:35)
[2018-03-23] MEDS: TYLENOL SUPP 650 MG PR PRN ×3 (01:27→21:36)
[2018-03-23] MEDS: NS 1000 ML 1,000 ML IV SCH ×3 (01:28→17:20)
[2018-03-23 07:12] LABS: BASOPHILS # (AUTO) 0.1 X10^3/uL (0.0-0.1); BASOPHILS % (AUTO) 0.7 % (0.2-1.0); EOSINOPHILS % (AUTO) 0.3 % (0.9-2.9); HEMATOCRIT 40.3 % (42.0-54.0); HEMOGLOBIN 13.8 g/dL (13.5-18.0); LYMPHOCYTES # (AUTO) 1.4 X10^3/uL (1.3-2.9); LYMPHOCYTES % (AUTO) 12.4 % (21.0-51.0); MEAN CORPUSCULAR HEMOGLOBIN 32.8 pg (27.0-34.0); MEAN CORPUSCULAR HGB CONC 34.3 g/dL (33.0-35.0); MEAN CORPUSCULAR VOLUME 95.4 fL (80.0-100.0); MEAN PLATELET VOLUME 7.8 fL (7.4-11.0); MONOCYTES % (AUTO) 9.5 % (0.0-13.0); NEUTROPHILS # (AUTO) 8.4 x10^3/uL (2.2-4.8); NEUTROPHILS % (AUTO) 77.1 % (42.0-75.0); PLATELET COUNT 232 X10^3/uL (150.0-450.0); RED BLOOD COUNT 4.22 X10^6/uL (4.7-6.0); RED CELL DISTRIBUTION WIDTH 13.4 % (11.6-16.5); WHITE BLOOD COUNT 10.9 X10^3/uL (3.6-10.0)
[2018-03-23 07:17] LABS: ALANINE AMINOTRANSFERASE 36 Units/L (12-78); ALBUMIN 3.4 g/dL (3.4-5.0); ALKALINE PHOSPHATASE 56 Units/L (46-116); ASPARTATE AMINO TRANSFERASE 22 Units/L (15-37); BLOOD UREA NITROGEN 5 mg/dL (7-18); CALCIUM 8.2 mg/dL (8.5-10.1); CHLORIDE 101 mmol/L (98-107); CREATININE 0.44 mg/dL (0.70-1.30); SODIUM 137 mmol/L (136-145); TOTAL PROTEIN 8.3 g/dL (6.4-8.2); eGFR BLACK RACES > 60 (>60); eGFR NON BLACK RACES > 60 (>60)
[2018-03-23] MEDS ORDERED: ROCEPHIN VIAL 1 GM ONE (07:54)
[2018-03-23] MEDS ORDERED: NS 100 ML IV 100 ML IV ONE (07:54)
[2018-03-23] MEDS: ATIVAN INJ 2 MG VIAL IVP PRN (08:00)
[2018-03-23] MEDS: ROCEPHIN VIAL 1 GM 1 GM in NS 100 ML IV + SPIKE MINIBAG* 100 ML IV SCH (08:00)
[2018-03-23] MEDS: MILK OF MAGNESIA PO SCH ×2 (10:07→21:35)
[2018-03-23] MEDS: LEVETIRACETAM GT SCH ×2 (11:00→21:35)
[2018-03-23] MEDS: CARBAMAZEPINE GT SCH ×2 (11:00→21:35)
[2018-03-23] MEDS: PATIENT'S HOME MEDICATION PO SCH ×2 (11:00→21:35)
[2018-03-23] MEDS: ZITHROMAX INJ 500 MG VIAL 250 MG in NS 250 ML IV 250 ML IV SCH (11:50)
[2018-03-23] MEDS: VANCOMYCIN HCL 500 MG VIAL 500 MG in D5W 100 ML IV 100 ML IV SCH (20:00)
[2018-03-23] MEDS ORDERED: PHARMACY CONSULT - VANCOMYCIN XX SCH (20:00)
[2018-03-23] MEDS ORDERED: VANCOMYCIN HCL 500 MG VIAL ONE (20:09)
[2018-03-23] MEDS ORDERED: NS 100 ML IV + SPIKE MINIBAG* 100 ML IV ONE (20:10)
[2018-03-23] MEDS ORDERED: VANCOMYCIN HCL 1 GM VIAL 1 GM in D5W 250 ML IV 250 ML IV SCH (21:00)
[2018-03-24] MEDS: TYLENOL SUPP 650 MG PR PRN ×2 (02:11→16:22)
[2018-03-24] MEDS: VANCOMYCIN HCL 500 MG VIAL 500 MG in D5W 100 ML IV 100 ML IV SCH (05:35)
[2018-03-24] MEDS ORDERED: NS 100 ML IV + SPIKE MINIBAG* 100 ML IV ONE (05:39)
[2018-03-24] MEDS ORDERED: VANCOMYCIN HCL 500 MG VIAL ONE (05:40)
[2018-03-24] MEDS: NS 1000 ML 1,000 ML IV SCH ×3 (05:46→21:44)
[2018-03-24 06:20] LABS: BASOPHILS % (AUTO) 0.2 % (0.2-1.0); EOSINOPHILS % (AUTO) 0.2 % (0.9-2.9); HEMATOCRIT 39.9 % (42.0-54.0); HEMOGLOBIN 13.7 g/dL (13.5-18.0); LYMPHOCYTES # (AUTO) 1.9 X10^3/uL (1.3-2.9); MEAN CORPUSCULAR HEMOGLOBIN 33.2 pg (27.0-34.0); MEAN CORPUSCULAR HGB CONC 34.3 g/dL (33.0-35.0); MEAN CORPUSCULAR VOLUME 96.8 fL (80.0-100.0); MEAN PLATELET VOLUME 8.7 fL (7.4-11.0); MONOCYTES # (AUTO) 1.3 x10^3/uL (0.3-0.8); NEUTROPHILS # (AUTO) 9.5 x10^3/uL (2.2-4.8); NEUTROPHILS % (AUTO) 74.6 % (42.0-75.0); PLATELET COUNT 223 X10^3/uL (150.0-450.0); RED BLOOD COUNT 4.12 X10^6/uL (4.7-6.0); RED CELL DISTRIBUTION WIDTH 13.6 % (11.6-16.5); WHITE BLOOD COUNT 12.7 X10^3/uL (3.6-10.0)
[2018-03-24 06:26] LABS: PLATELET MORPHOLOGY COMMENT NORMAL (NORMAL)
[2018-03-24 06:30] LABS: ALANINE AMINOTRANSFERASE 31 Units/L (12-78); ALBUMIN 3.3 g/dL (3.4-5.0); ALKALINE PHOSPHATASE 55 Units/L (46-116); ASPARTATE AMINO TRANSFERASE 21 Units/L (15-37); BLOOD UREA NITROGEN 3 mg/dL (7-18); CALCIUM 8.7 mg/dL (8.5-10.1); CARBON DIOXIDE 25.1 mmol/L (21-32); CHLORIDE 100 mmol/L (98-107); COR CA(FOR HYPOALB) 9.3 mg/dL (8.5-10.1); SODIUM 135 mmol/L (136-145); TOTAL PROTEIN 8.4 g/dL (6.4-8.2); eGFR BLACK RACES > 60 (>60); eGFR NON BLACK RACES > 60 (>60)
--- NOTE | 2018-03-24 06:33 | RAD ---
HISTORY: Constipation Study: KUB Comparison: 03/22/2018 Findings: There has been a decrease in the stool present within the distal left colon. Some residual stool david ins. The remainder of the colon appears free of stool. The abdominal gas pattern is nonspecific and n onobstructive. There is a gastrostomy tube present. Postsurgical changes are present in the spine wit h rods present. 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 There is a spinal stimulator batte ry in the left lower quadrant. IMPRESSION: Decreased rectosigmoid stool when compared with the prior examination Nonspecific bowel gas pattern Reported By:
[2018-03-24] MEDS: ROCEPHIN VIAL 1 GM 1 GM in NS 100 ML IV + SPIKE MINIBAG* 100 ML IV SCH (08:56)
[2018-03-24] MEDS: MILK OF MAGNESIA PO SCH (08:57)
[2018-03-24] MEDS ORDERED: PHENOBARBITAL PO SCH (09:00)
[2018-03-24] MEDS: CARBAMAZEPINE GT SCH ×2 (09:02→21:44)
[2018-03-24] MEDS: LEVETIRACETAM GT SCH ×2 (09:02→21:44)
[2018-03-24] MEDS: ZITHROMAX INJ 500 MG VIAL 250 MG in NS 250 ML IV 250 ML IV SCH (09:49)
[2018-03-24] MEDS ORDERED: VANCOMYCIN HCL 500 MG VIAL 500 MG in NS 100 ML IV 100 ML IV SCH (10:00)
[2018-03-24] MEDS: PHENOBARBITAL TAB 15 MG (16.2MG) PO SCH ×2 (10:00→21:43)
[2018-03-24] MEDS: K-RIDER 10 MEQ/NS 100 ML 10 MEQ/100 ML BAG IV PRN ×2 (11:50→12:55)
[2018-03-24] MEDS ORDERED: TORADOL 30 MG VIAL IVP ONE (17:56)
[2018-03-24 21:42] LABS: CREATININE 0.36 mg/dL (0.70-1.30); VANCOMYCIN,TROUGH 4.1 ug/mL (15-20)
[2018-03-24] MEDS: VANCOMYCIN HCL 500 MG VIAL 500 MG in NS 100 ML IV 100 ML IV SCH (21:48)
[2018-03-25] MEDS: NS 1000 ML 1,000 ML IV SCH ×3 (01:30→20:40)
[2018-03-25] MEDS ORDERED: NS 100 ML IV + SPIKE MINIBAG* 100 ML IV ONE ×2 (04:39→22:24)
[2018-03-25] MEDS: VANCOMYCIN HCL 500 MG VIAL 500 MG in NS 100 ML IV 100 ML IV SCH ×3 (05:02→22:32)
[2018-03-25] MEDS: TYLENOL SUPP 650 MG PR PRN ×2 (05:03→09:04)
[2018-03-25 06:28] LABS: BASOPHILS # (AUTO) 0.1 X10^3/uL (0.0-0.1); BASOPHILS % (AUTO) 0.8 % (0.2-1.0); EOSINOPHILS # (AUTO) 0.1 x10^3/uL (0.0-0.2); EOSINOPHILS % (AUTO) 0.6 % (0.9-2.9); HEMATOCRIT 37.6 % (42.0-54.0); LYMPHOCYTES # (AUTO) 1.3 X10^3/uL (1.3-2.9); MEAN CORPUSCULAR HEMOGLOBIN 32.8 pg (27.0-34.0); MEAN CORPUSCULAR HGB CONC 34.6 g/dL (33.0-35.0); MEAN CORPUSCULAR VOLUME 94.9 fL (80.0-100.0); MEAN PLATELET VOLUME 8.4 fL (7.4-11.0); MONOCYTES # (AUTO) 0.8 x10^3/uL (0.3-0.8); MONOCYTES % (AUTO) 7.8 % (0.0-13.0); NEUTROPHILS # (AUTO) 8.4 x10^3/uL (2.2-4.8); NEUTROPHILS % (AUTO) 78.8 % (42.0-75.0); PLATELET COUNT 224 X10^3/uL (150.0-450.0); RED BLOOD COUNT 3.97 X10^6/uL (4.7-6.0); RED CELL DISTRIBUTION WIDTH 13.3 % (11.6-16.5); WHITE BLOOD COUNT 10.7 X10^3/uL (3.6-10.0)
[2018-03-25 06:51] LABS: ALANINE AMINOTRANSFERASE 26 Units/L (12-78); ALBUMIN 2.8 g/dL (3.4-5.0); ALKALINE PHOSPHATASE 55 Units/L (46-116); ASPARTATE AMINO TRANSFERASE 21 Units/L (15-37); BLOOD UREA NITROGEN 5 mg/dL (7-18); CALCIUM 8.3 mg/dL (8.5-10.1); CARBON DIOXIDE 24.7 mmol/L (21-32); CHLORIDE 102 mmol/L (98-107); COR CA(FOR HYPOALB) 9.3 mg/dL (8.5-10.1); CREATININE 0.35 mg/dL (0.70-1.30); SODIUM 138 mmol/L (136-145); TOTAL PROTEIN 7.6 g/dL (6.4-8.2); eGFR BLACK RACES > 60 (>60); eGFR NON BLACK RACES > 60 (>60)
[2018-03-25] MEDS: PHENOBARBITAL TAB 15 MG (16.2MG) PO SCH ×2 (08:50→20:40)
[2018-03-25] MEDS: ROCEPHIN VIAL 1 GM 1 GM in NS 100 ML IV + SPIKE MINIBAG* 100 ML IV SCH (08:51)
[2018-03-25] MEDS: ZITHROMAX INJ 500 MG VIAL 250 MG in NS 250 ML IV 250 ML IV SCH (08:52)
[2018-03-25] MEDS: CARBAMAZEPINE GT SCH ×2 (08:52→20:40)
[2018-03-25] MEDS: LEVETIRACETAM GT SCH ×2 (08:53→20:40)
[2018-03-25 22:20] LABS: CREATININE 0.48 mg/dL (0.70-1.30); VANCOMYCIN,TROUGH 4.5 ug/mL (15-20)
[2018-03-26] MEDS: TYLENOL SUPP 650 MG PR PRN ×3 (02:59→22:10)
[2018-03-26] MEDS ORDERED: NS 100 ML IV + SPIKE MINIBAG* 100 ML IV ONE (05:26)
[2018-03-26 06:11] LABS: BASOPHILS % (AUTO) 0.3 % (0.2-1.0); EOSINOPHILS % (AUTO) 0.1 % (0.9-2.9); HEMATOCRIT 33.1 % (42.0-54.0); HEMOGLOBIN 11.6 g/dL (13.5-18.0); LYMPHOCYTES # (AUTO) 1.5 X10^3/uL (1.3-2.9); LYMPHOCYTES % (AUTO) 15.2 % (21.0-51.0); MEAN CORPUSCULAR HEMOGLOBIN 33.1 pg (27.0-34.0); MEAN CORPUSCULAR VOLUME 94.5 fL (80.0-100.0); MEAN PLATELET VOLUME 8.1 fL (7.4-11.0); MONOCYTES # (AUTO) 1.1 x10^3/uL (0.3-0.8); MONOCYTES % (AUTO) 10.7 % (0.0-13.0); NEUTROPHILS # (AUTO) 7.4 x10^3/uL (2.2-4.8); NEUTROPHILS % (AUTO) 73.7 % (42.0-75.0); PLATELET COUNT 222 X10^3/uL (150.0-450.0); RED CELL DISTRIBUTION WIDTH 13.2 % (11.6-16.5)
[2018-03-26 06:16] LABS: ALANINE AMINOTRANSFERASE 22 Units/L (12-78); ALBUMIN 2.4 g/dL (3.4-5.0); ALKALINE PHOSPHATASE 48 Units/L (46-116); ASPARTATE AMINO TRANSFERASE 14 Units/L (15-37); BLOOD UREA NITROGEN 3 mg/dL (7-18); CALCIUM 7.3 mg/dL (8.5-10.1); CARBON DIOXIDE 25.2 mmol/L (21-32); CHLORIDE 102 mmol/L (98-107); COR CA(FOR HYPOALB) 8.6 mg/dL (8.5-10.1); CREATININE 0.29 mg/dL (0.70-1.30); SODIUM 138 mmol/L (136-145); TOTAL PROTEIN 6.6 g/dL (6.4-8.2); eGFR BLACK RACES > 60 (>60); eGFR NON BLACK RACES > 60 (>60)
[2018-03-26] MEDS: ROCEPHIN VIAL 1 GM 1 GM in NS 100 ML IV + SPIKE MINIBAG* 100 ML IV SCH (08:28)
[2018-03-26] MEDS: CARBAMAZEPINE GT SCH ×2 (08:29→20:34)
[2018-03-26] MEDS: PHENOBARBITAL TAB 15 MG (16.2MG) PO SCH ×2 (08:30→20:37)
[2018-03-26] MEDS: LEVETIRACETAM GT SCH ×2 (08:30→20:36)
[2018-03-26] MEDS: ZITHROMAX INJ 500 MG VIAL 250 MG in NS 250 ML IV 250 ML IV SCH (09:43)
[2018-03-26] MEDS: NS 1000 ML 1,000 ML IV SCH (12:32)
--- NOTE | 2018-03-26 13:27 | PCM.PROG ---
Progress Note - Progress Note for Day of Date: 03/26/18 - Subjective Subjective: 30 BM ADMITTED ON 03/22 WITH UNCONTROLLED SEIZURES, ACUTE SINUSITIS, CONSTIPATION WITH FECAL IMPACTION AND POSITIVE BLOOD CULTURES. PT HAS BEEN ON IV ATBX THERAPY WITH GRADUAL IMPROVED RESPONSIVENESS AND DECREASED SEIZURE ACTIVITY. PLAN TO CONTINUE IV ATBX EVEN AFTER D/C HOME, DISCUSSED PLAN WITH PARENT AND CASE MANAGMENT. PT MOTHER STATES PT HAD FEVER LAST PM. PT APPEARS SLEEPY THIS AM, MORE LETHARGIC THAN ONE DAY AGO. - Past Medical Family Social History Past Med/Fam/Surg Hx: No changes since H&P Allergies: Allergies Sulfa (Sulfonamide Antibiotics) [SULFA] Allergy (Verified 09/10/17 00:14) - Review of Systems ROS: No change since H&P - Vital Signs and I&O's Vital Signs: Temperature 99.7 F Pulse Rate [Left Brachial] 89 Pulse Rate 106 Respiratory Rate 22 Blood Pressure [Left Arm] 95/62 Blood Pressure [Left Calf] 100/58 Blood Pressure 92/46 O2 Sat by Pulse Oximetry 96 Intake and Output: Intake & Output 03/24/18 03/25/18 03/26/18 03/27/18 11:59 11:59 11:59 11:59 Intake Total 2893 3007 2198 Balance 2893 3007 2198 - Physical Exam Oriented: Other (APHASIC) Eyes: Normal Ear: Normal Nose: Discharge Throat: Red Respiratory: Diminished Cardiovascular: Normal : Normal Auscultation: Bowel Sounds: Normal Tenderness: Normal Skin: Normal Musculoskeletal: Deformity, Motor Deficit Mood Description: Flat Speech Pattern: Aphasic - Laboratory and Diagnostics Result Diagrams: 03/26/18 05:27 03/26/18 05:27 Labs: 03/23/18 19:28 Blood Blood Culture - Preliminary 03/23/18 19:38 Blood Blood Culture - Preliminary 03/21/18 23:39 Blood Blood Culture - Final Staphylococcus Capitis 03/22/18 00:04 Blood Blood Culture - Preliminary Laboratory WBC 10.0 X10^3/uL (3.6-10.0) 03/26/18 05:27 RBC 3.50 X10^6/uL (4.7-6.0) L 03/26/18 05:27 Hgb 11.6 g/dL (13.5-18.0) L 03/26/18 05:27 Hct 33.1 % (42.0-54.0) L 03/26/18 05:27 MCV 94.5 fL (80.0-100.0) 03/26/18 05:27 MCH 33.1 pg (27.0-34.0) 03/26/18 05:27 MCHC 35.0 g/dL (33.0-35.0) 03/26/18 05:27 RDW 13.2 % (11.6-16.5) 03/26/18 05:27 Plt Count 222 X10^3/uL (150.0-450.0) 03/26/18 05:27 Plt Count Comment Adequate (ADEQUATE) 03/24/18 04:11 MPV 8.1 fL (7.4-11.0) 03/26/18 05:27 Neut % (Auto) 73.7 % (42.0-75.0) 03/26/18 05:27 Lymph % (Auto) 15.2 % (21.0-51.0) L 03/26/18 05:27 [place] % (Auto) 10.7 % (0.0-13.0) 03/26/18 05:27 Eos % (Auto) 0.1 % (0.9-2.9) L 03/26/18 05:27 Baso % (Auto) 0.3 % (0.2-1.0) 03/26/18 05:27 Neut # (Auto) 7.4 x10^3/uL (2.2-4.8) H 03/26/18 05:27 Lymph # (Auto) 1.5 X10^3/uL (1.3-2.9) 03/26/18 05:27 [place] # (Auto) 1.1 x10^3/uL (0.3-0.8) H 03/26/18 05:27 Eos # (Auto) 0.0 x10^3/uL (0.0-0.2) 03/26/18 05:27 Baso # (Auto) 0.0 X10^3/uL (0.0-0.1) 03/26/18 05:27 Absolute Nucleated RBC 0.0 /100WBC 03/26/18 05:27 Plt Morphology Comment Normal (NORMAL) 03/24/18 04:11 RBC Morphology Normal (NORMAL) 03/24/18 04:11 Sodium 138 mmol/L (136-145) 03/26/18 05:27 Corrected Sodium TNP 03/26/18 05:27 Potassium 2.7 mmol/L (3.5-5.1) L* 03/26/18 05:27 Chloride 102 mmol/L (98-107) 03/26/18 05:27 Carbon Dioxide 25.2 mmol/L (21-32) 03/26/18 05:27 BUN 3 mg/dL (7-18) L 03/26/18 05:27 Creatinine 0.29 mg/dL (0.70-1.30) L 03/26/18 05:27 Est GFR (MDRD) Af Amer > 60 (>60) 03/26/18 05:27 Est GFR (MDRD) Non-Af > 60 (>60) 03/26/18 05:27 Glucose 89 mg/dL (65-99) 03/26/18 05:27 Lactic Acid 1.3 mmol/L (0.4-2.0) 03/25/18 06:05 Calcium 7.3 mg/dL (8.5-10.1) L 03/26/18 05:27 Corrected Calcium 8.6 mg/dL (8.5-10.1) 03/26/18 05:27 Magnesium 2.0 mg/dL (1.7-2.9) 03/26/18 05:27 Total Bilirubin 0.50 mg/dL (0.2-1.0) 03/26/18 05:27 AST 14 Units/L (15-37) L 03/26/18 05:27 ALT 22 Units/L (12-78) 03/26/18 05:27 Alkaline Phosphatase 48 Units/L (46-116) 03/26/18 05:27 Total Protein 6.6 g/dL (6.4-8.2) 03/26/18 05:27 Albumin 2.4 g/dL (3.4-5.0) L 03/26/18 05:27 Globulin 4.2 g/dL (2.5-4.5) 03/26/18 05:27 Albumin/Globulin Ratio 0.6 Ratio (1.1-2.1) L 03/26/18 05:27 Specimen Type Random urine 03/22/18 02:32 Urine Color Yellow (YELLOW) 03/22/18 02:32 Urine Appearance Clear (CLEAR) 03/22/18 02:32 Urine pH 6.0 (5.0 - 8.0) 03/22/18 02:32 Ur Specific [place] 1.010 (1.000-1.030) 03/22/18 02:32 Urine Protein Negative (NEGATIVE) 03/22/18 02:32 Urine Glucose (UA) Negative (NEGATIVE) 03/22/18 02:32 Urine Ketones Negative (NEGATIVE) 03/22/18 02:32 Urine Occult Blood Negative (NEGATIVE) 03/22/18 02:32 Urine Nitrite Negative (NEGATIVE) 03/22/18 02:32 Urine Bilirubin Negative (NEGATIVE) 03/22/18 02:32 Urine Urobilinogen Normal (NORMAL) 03/22/18 02:32 Ur Leukocyte Esterase Negative (NEGATIVE) 03/22/18 02:32 Vancomycin Trough 4.5 ug/mL (15-20) L 03/25/18 21:53 Carbamazepine 14.6 ug/mL (4-12) H 03/22/18 08:10 Levetiracetam 75 ug/mL (12-46) H 03/22/18 11:10 Phenobarbital 34.8 ug/mL (15-40) 03/23/18 06:50 Acetone, Semi-Quant Negative (NEGATIVE) 03/23/18 12:35 - Plan (1) Seizure disorder Status: Acute Plan: SEIZURE PRECAUTIONS. ADMISSION LABS, CULTURES. IV ATBX. KEPPRA LEVELS, ELEVATED PHENOBARBITAL LEVELS. 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
[2018-03-26] MEDS: VANCOMYCIN HCL 500 MG VIAL 500 MG in NS 100 ML IV 100 ML IV SCH ×2 (13:50→22:00)
[2018-03-26] MEDS: POTASSIUM CHLORIDE LIQ 20 MEQ UDC PO PRN ×2 (16:14→22:10)
[2018-03-27] MEDS: TYLENOL SUPP 650 MG PR PRN ×3 (02:25→19:44)
[2018-03-27] MEDS: NS 1000 ML 1,000 ML IV SCH ×2 (03:36→14:48)
[2018-03-27 06:04] LABS: CREATININE 0.36 mg/dL (0.70-1.30); VANCOMYCIN,TROUGH 5.1 ug/mL (15-20)
[2018-03-27 06:12] LABS: BASOPHILS # (AUTO) 0.1 X10^3/uL (0.0-0.1); BASOPHILS % (AUTO) 0.6 % (0.2-1.0); EOSINOPHILS % (AUTO) 0.3 % (0.9-2.9); HEMATOCRIT 35.9 % (42.0-54.0); HEMOGLOBIN 12.5 g/dL (13.5-18.0); LYMPHOCYTES # (AUTO) 2.7 X10^3/uL (1.3-2.9); LYMPHOCYTES % (AUTO) 26.4 % (21.0-51.0); MEAN CORPUSCULAR HGB CONC 34.8 g/dL (33.0-35.0); MEAN CORPUSCULAR VOLUME 94.6 fL (80.0-100.0); MEAN PLATELET VOLUME 7.9 fL (7.4-11.0); MONOCYTES % (AUTO) 9.8 % (0.0-13.0); NEUTROPHILS # (AUTO) 6.5 x10^3/uL (2.2-4.8); NEUTROPHILS % (AUTO) 62.9 % (42.0-75.0); PLATELET COUNT 250 X10^3/uL (150.0-450.0); RED CELL DISTRIBUTION WIDTH 13.2 % (11.6-16.5); WHITE BLOOD COUNT 10.4 X10^3/uL (3.6-10.0)
[2018-03-27] MEDS: VANCOMYCIN HCL 500 MG VIAL 500 MG in NS 100 ML IV 100 ML IV SCH (06:34)
[2018-03-27 06:46] LABS: ALANINE AMINOTRANSFERASE 24 Units/L (12-78); ALBUMIN 2.5 g/dL (3.4-5.0); ALKALINE PHOSPHATASE 57 Units/L (46-116); ASPARTATE AMINO TRANSFERASE 15 Units/L (15-37); BLOOD UREA NITROGEN 2 mg/dL (7-18); CALCIUM 7.9 mg/dL (8.5-10.1); CARBON DIOXIDE 26.7 mmol/L (21-32); CHLORIDE 102 mmol/L (98-107); COR CA(FOR HYPOALB) 9.1 mg/dL (8.5-10.1); CREATININE 0.37 mg/dL (0.70-1.30); SODIUM 137 mmol/L (136-145); TOTAL PROTEIN 7.3 g/dL (6.4-8.2); eGFR BLACK RACES > 60 (>60); eGFR NON BLACK RACES > 60 (>60)
[2018-03-27] MEDS: ROCEPHIN VIAL 1 GM 1 GM in NS 100 ML IV + SPIKE MINIBAG* 100 ML IV SCH (08:50)
[2018-03-27] MEDS: POTASSIUM CHLORIDE LIQ 20 MEQ UDC PO PRN (08:50)
[2018-03-27] MEDS: PHENOBARBITAL TAB 15 MG (16.2MG) PO SCH ×2 (08:50→21:19)
[2018-03-27] MEDS: LEVETIRACETAM GT SCH ×2 (08:51→21:20)
[2018-03-27] MEDS: CARBAMAZEPINE GT SCH ×2 (08:51→21:20)
[2018-03-27] MEDS: ZITHROMAX INJ 500 MG VIAL 250 MG in NS 250 ML IV 250 ML IV SCH (10:00)
--- NOTE | 2018-03-27 12:56 | PCM.PROG ---
Progress Note - Progress Note for Day of Date: 03/27/18 - Subjective Subjective: 30 BM ADMITTED ON 03/22 WITH UNCONTROLLED SEIZURES, ACUTE SINUSITIS, CONSTIPATION WITH FECAL IMPACTION AND POSITIVE BLOOD CULTURES. PT HAS BEEN ON IV ATBX THERAPY WITH GRADUAL IMPROVED RESPONSIVENESS AND DECREASED SEIZURE ACTIVITY. PT IS ALERT AND AWAKE THIS AM, CONTIUES TO RUN FEVER DURING THE NIGHT. PLAN TO CONTINUE IV ATBX EVEN AFTER D/C HOME, DISCUSSED PLAN WITH PARENT AND CASE MANAGMENT. - Past Medical Family Social History Past Med/Fam/Surg Hx: No changes since H&P Allergies: Allergies Sulfa (Sulfonamide Antibiotics) [SULFA] Allergy (Verified 09/10/17 00:14) - Review of Systems ROS: No change since H&P - Vital Signs and I&O's Vital Signs: Temperature 99.9 F Pulse Rate [Left Brachial] 98 Pulse Rate 106 Respiratory Rate 22 Blood Pressure [Left Arm] 80/45 Blood Pressure [Left Calf] 100/58 Blood Pressure 92/46 O2 Sat by Pulse Oximetry 97 Intake and Output: Intake & Output 03/25/18 03/26/18 03/27/18 03/28/18 11:59 11:59 11:59 11:59 Intake Total 3007 2198 3142 Balance 3007 2198 3142 - Physical Exam Oriented: Other (APHASIC) Eyes: Normal Ear: Normal Nose: Discharge Throat: Red Respiratory: Diminished Cardiovascular: Normal : Normal Auscultation: Bowel Sounds: Normal Tenderness: Normal Skin: Normal Musculoskeletal: Deformity, Motor Deficit Mood Description: Flat Speech Pattern: Aphasic - Laboratory and Diagnostics Result Diagrams: 03/27/18 05:25 03/27/18 05:25 Labs: 03/23/18 19:28 Blood Blood Culture - Preliminary 03/22/18 00:04 Blood Blood Culture - Final 03/23/18 19:38 Blood Blood Culture - Preliminary 03/21/18 23:39 Blood Blood Culture - Final Staphylococcus Capitis Laboratory WBC 10.4 X10^3/uL (3.6-10.0) H 03/27/18 05:25 RBC 3.80 X10^6/uL (4.7-6.0) L 03/27/18 05:25 Hgb 12.5 g/dL (13.5-18.0) L 03/27/18 05:25 Hct 35.9 % (42.0-54.0) L 03/27/18 05:25 MCV 94.6 fL (80.0-100.0) 03/27/18 05:25 MCH 33.0 pg (27.0-34.0) 03/27/18 05:25 MCHC 34.8 g/dL (33.0-35.0) 03/27/18 05:25 RDW 13.2 % (11.6-16.5) 03/27/18 05:25 Plt Count 250 X10^3/uL (150.0-450.0) 03/27/18 05:25 Plt Count Comment Adequate (ADEQUATE) 03/24/18 04:11 MPV 7.9 fL (7.4-11.0) 03/27/18 05:25 Neut % (Auto) 62.9 % (42.0-75.0) 03/27/18 05:25 Lymph % (Auto) 26.4 % (21.0-51.0) 03/27/18 05:25 [place] % (Auto) 9.8 % (0.0-13.0) 03/27/18 05:25 Eos % (Auto) 0.3 % (0.9-2.9) L 03/27/18 05:25 Baso % (Auto) 0.6 % (0.2-1.0) 03/27/18 05:25 Neut # (Auto) 6.5 x10^3/uL (2.2-4.8) H 03/27/18 05:25 Lymph # (Auto) 2.7 X10^3/uL (1.3-2.9) 03/27/18 05:25 [place] # (Auto) 1.0 x10^3/uL (0.3-0.8) H 03/27/18 05:25 Eos # (Auto) 0.0 x10^3/uL (0.0-0.2) 03/27/18 05:25 Baso # (Auto) 0.1 X10^3/uL (0.0-0.1) 03/27/18 05:25 Absolute Nucleated RBC 0.1 /100WBC 03/27/18 05:25 Plt Morphology Comment Normal (NORMAL) 03/24/18 04:11 RBC Morphology Normal (NORMAL) 03/24/18 04:11 Sodium 137 mmol/L (136-145) 03/27/18 05:25 Corrected Sodium TNP 03/27/18 05:25 Potassium 3.4 mmol/L (3.5-5.1) L 03/27/18 05:25 Chloride 102 mmol/L (98-107) 03/27/18 05:25 Carbon Dioxide 26.7 mmol/L (21-32) 03/27/18 05:25 BUN 2 mg/dL (7-18) L 03/27/18 05:25 Creatinine 0.37 mg/dL (0.70-1.30) L 03/27/18 05:25 Est GFR (MDRD) Af Amer > 60 (>60) 03/27/18 05:25 Est GFR (MDRD) Non-Af > 60 (>60) 03/27/18 05:25 Glucose 95 mg/dL (65-99) 03/27/18 05:25 Lactic Acid 1.3 mmol/L (0.4-2.0) 03/25/18 06:05 Calcium 7.9 mg/dL (8.5-10.1) L 03/27/18 05:25 Corrected Calcium 9.1 mg/dL (8.5-10.1) 03/27/18 05:25 Magnesium 2.0 mg/dL (1.7-2.9) 03/26/18 05:27 Total Bilirubin 0.50 mg/dL (0.2-1.0) 03/27/18 05:25 AST 15 Units/L (15-37) 03/27/18 05:25 ALT 24 Units/L (12-78) 03/27/18 05:25 Alkaline Phosphatase 57 Units/L (46-116) 03/27/18 05:25 Total Protein 7.3 g/dL (6.4-8.2) 03/27/18 05:25 Albumin 2.5 g/dL (3.4-5.0) L 03/27/18 05:25 Globulin 4.8 g/dL (2.5-4.5) H 03/27/18 05:25 Albumin/Globulin Ratio 0.5 Ratio (1.1-2.1) L 03/27/18 05:25 Specimen Type Random urine 03/22/18 02:32 Urine Color Yellow (YELLOW) 03/22/18 02:32 Urine Appearance Clear (CLEAR) 03/22/18 02:32 Urine pH 6.0 (5.0 - 8.0) 03/22/18 02:32 Ur Specific [place] 1.010 (1.000-1.030) 03/22/18 02:32 Urine Protein Negative (NEGATIVE) 03/22/18 02:32 Urine Glucose (UA) Negative (NEGATIVE) 03/22/18 02:32 Urine Ketones Negative (NEGATIVE) 03/22/18 02:32 Urine Occult Blood Negative (NEGATIVE) 03/22/18 02:32 Urine Nitrite Negative (NEGATIVE) 03/22/18 02:32 Urine Bilirubin Negative (NEGATIVE) 03/22/18 02:32 Urine Urobilinogen Normal (NORMAL) 03/22/18 02:32 Ur Leukocyte Esterase Negative (NEGATIVE) 03/22/18 02:32 Vancomycin Trough 5.1 ug/mL (15-20) L 03/27/18 05:25 Carbamazepine 14.6 ug/mL (4-12) H 03/22/18 08:10 Levetiracetam 75 ug/mL (12-46) H 03/22/18 11:10 Phenobarbital 34.8 ug/mL (15-40) 03/23/18 06:50 Acetone, Semi-Quant Negative (NEGATIVE) 03/23/18 12:35 - Plan (1) Seizure disorder Status: Acute Plan: SEIZURE PRECAUTIONS. REPEAT CULTURES PENDING. IV ATBX. KEPPRA LEVELS, ELEVATED PHENOBARBITAL LEVELS. 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
--- NOTE | 2018-03-27 14:19 | RAD ---
HISTORY: Constipation, fecal impaction Study: Single-view of the abdomen Comparison: 03/24/2018 Findings: Single supine portable view is submitted. Stable chronic postsurgical changes and deformities of the spine and pelvis. There is decreased gaseous distention of the bowel. There is some persistent retain ed stool in the rectum although this appears slightly improved from prior study. IMPRESSION: 1. Decreased gaseous distention of the bowel and decreased retained stool in the rectum compared to p rior exam. Reported By:
[2018-03-27] MEDS: VANCOMYCIN HCL 500 MG VIAL 750 MG in D5W 250 ML IV 250 ML IV SCH ×2 (14:47→22:31)
[2018-03-28] MEDS: TYLENOL SUPP 650 MG PR PRN ×2 (04:30→23:00)
[2018-03-28] MEDS: VANCOMYCIN HCL 500 MG VIAL 750 MG in D5W 250 ML IV 250 ML IV SCH (05:20)
[2018-03-28 05:33] LABS: BASOPHILS # (AUTO) 0.1 X10^3/uL (0.0-0.1); BASOPHILS % (AUTO) 0.6 % (0.2-1.0); EOSINOPHILS % (AUTO) 0.5 % (0.9-2.9); HEMATOCRIT 34.1 % (42.0-54.0); HEMOGLOBIN 11.9 g/dL (13.5-18.0); LYMPHOCYTES # (AUTO) 1.7 X10^3/uL (1.3-2.9); LYMPHOCYTES % (AUTO) 19.3 % (21.0-51.0); MEAN CORPUSCULAR HEMOGLOBIN 33.1 pg (27.0-34.0); MEAN CORPUSCULAR HGB CONC 34.8 g/dL (33.0-35.0); MEAN CORPUSCULAR VOLUME 94.9 fL (80.0-100.0); MEAN PLATELET VOLUME 7.6 fL (7.4-11.0); MONOCYTES # (AUTO) 0.6 x10^3/uL (0.3-0.8); MONOCYTES % (AUTO) 7.4 % (0.0-13.0); NEUTROPHILS # (AUTO) 6.3 x10^3/uL (2.2-4.8); NEUTROPHILS % (AUTO) 72.2 % (42.0-75.0); PLATELET COUNT 295 X10^3/uL (150.0-450.0); RED BLOOD COUNT 3.59 X10^6/uL (4.7-6.0); RED CELL DISTRIBUTION WIDTH 13.3 % (11.6-16.5); WHITE BLOOD COUNT 8.8 X10^3/uL (3.6-10.0)
[2018-03-28 05:51] LABS: ALANINE AMINOTRANSFERASE 23 Units/L (12-78); ALBUMIN 2.4 g/dL (3.4-5.0); ALKALINE PHOSPHATASE 57 Units/L (46-116); ASPARTATE AMINO TRANSFERASE 20 Units/L (15-37); BLOOD UREA NITROGEN 3 mg/dL (7-18); CALCIUM 7.9 mg/dL (8.5-10.1); CARBON DIOXIDE 26.5 mmol/L (21-32); CHLORIDE 98 mmol/L (98-107); COR CA(FOR HYPOALB) 9.2 mg/dL (8.5-10.1); CREATININE 0.27 mg/dL (0.70-1.30); SODIUM 132 mmol/L (136-145); TOTAL PROTEIN 7.2 g/dL (6.4-8.2); eGFR BLACK RACES > 60 (>60); eGFR NON BLACK RACES > 60 (>60)
[2018-03-28 05:54] LABS: CARBAMAZEPINE (TEGRETOL) 9.2 ug/mL (4-12)
[2018-03-28] MEDS: ROCEPHIN VIAL 1 GM 1 GM in NS 100 ML IV + SPIKE MINIBAG* 100 ML IV SCH (08:42)
[2018-03-28] MEDS: ZITHROMAX INJ 500 MG VIAL 250 MG in NS 250 ML IV 250 ML IV SCH (08:42)
[2018-03-28] MEDS: PHENOBARBITAL TAB 15 MG (16.2MG) PO SCH ×2 (08:43→20:23)
[2018-03-28] MEDS: LEVETIRACETAM GT SCH ×2 (08:44→20:23)
[2018-03-28] MEDS: CARBAMAZEPINE GT SCH ×2 (08:44→20:23)
--- NOTE | 2018-03-28 14:12 | PCM.PROG ---
Progress Note - Progress Note for Day of Date: 03/28/18 - Subjective Subjective: 30 BM ADMITTED ON 03/22 WITH UNCONTROLLED SEIZURES, ACUTE SINUSITIS, CONSTIPATION WITH FECAL IMPACTION AND POSITIVE BLOOD CULTURES. PT HAS BEEN ON IV ATBX THERAPY WITH GRADUAL IMPROVED RESPONSIVENESS AND DECREASED SEIZURE ACTIVITY. PT IS ALERT AND AWAKE THIS AM, CONTIUES TO RUN FEVER DURING THE NIGHT. 2ND BC POSITIVE FOR STAPH, PT CURRENTLY ON IV VANCOMYCIN. CONSULT DR MCDONOUGH FOR PORT C CATH REMOVAL DUE TO LINE SEPSIS. - Past Medical Family Social History Past Med/Fam/Surg Hx: No changes since H&P Allergies: Allergies Sulfa (Sulfonamide Antibiotics) [SULFA] Allergy (Verified 09/10/17 00:14) - Review of Systems ROS: No change since H&P - Vital Signs and I&O's Vital Signs: Temperature 100.0 F Pulse Rate [Left Brachial] 102 Pulse Rate 106 Respiratory Rate 20 Blood Pressure [Left Arm] 98/60 Blood Pressure [Left Calf] 100/58 Blood Pressure 92/46 O2 Sat by Pulse Oximetry 96 Intake and Output: Intake & Output 03/26/18 03/27/18 03/28/18 03/29/18 11:59 11:59 11:59 11:59 Intake Total 2198 3142 2691 Balance 2198 3142 2691 - Physical Exam Oriented: Other (APHASIC) Eyes: Normal Ear: Normal Nose: Discharge Throat: Red Respiratory: Diminished Cardiovascular: Normal : Normal Auscultation: Bowel Sounds: Normal Tenderness: Normal Skin: Normal Musculoskeletal: Deformity, Motor Deficit Mood Description: Flat Speech Pattern: Aphasic - Laboratory and Diagnostics Result Diagrams: 03/28/18 05:05 03/28/18 05:05 Labs: 03/23/18 19:38 Blood Blood Culture - Preliminary 03/23/18 19:28 Blood Blood Culture - Final Staph Auricularis 03/22/18 00:04 Blood Blood Culture - Final 03/21/18 23:39 Blood Blood Culture - Final Staphylococcus Capitis Laboratory WBC 8.8 X10^3/uL (3.6-10.0) 03/28/18 05:05 RBC 3.59 X10^6/uL (4.7-6.0) L 03/28/18 05:05 Hgb 11.9 g/dL (13.5-18.0) L 03/28/18 05:05 Hct 34.1 % (42.0-54.0) L 03/28/18 05:05 MCV 94.9 fL (80.0-100.0) 03/28/18 05:05 MCH 33.1 pg (27.0-34.0) 03/28/18 05:05 MCHC 34.8 g/dL (33.0-35.0) 03/28/18 05:05 RDW 13.3 % (11.6-16.5) 03/28/18 05:05 Plt Count 295 X10^3/uL (150.0-450.0) 03/28/18 05:05 Plt Count Comment Adequate (ADEQUATE) 03/24/18 04:11 MPV 7.6 fL (7.4-11.0) 03/28/18 05:05 Neut % (Auto) 72.2 % (42.0-75.0) 03/28/18 05:05 Lymph % (Auto) 19.3 % (21.0-51.0) L 03/28/18 05:05 [place] % (Auto) 7.4 % (0.0-13.0) 03/28/18 05:05 Eos % (Auto) 0.5 % (0.9-2.9) L 03/28/18 05:05 Baso % (Auto) 0.6 % (0.2-1.0) 03/28/18 05:05 Neut # (Auto) 6.3 x10^3/uL (2.2-4.8) H 03/28/18 05:05 Lymph # (Auto) 1.7 X10^3/uL (1.3-2.9) 03/28/18 05:05 [place] # (Auto) 0.6 x10^3/uL (0.3-0.8) 03/28/18 05:05 Eos # (Auto) 0.0 x10^3/uL (0.0-0.2) 03/28/18 05:05 Baso # (Auto) 0.1 X10^3/uL (0.0-0.1) 03/28/18 05:05 Absolute Nucleated RBC 0.0 /100WBC 03/28/18 05:05 Plt Morphology Comment Normal (NORMAL) 03/24/18 04:11 RBC Morphology Normal (NORMAL) 03/24/18 04:11 Sodium 132 mmol/L (136-145) L 03/28/18 05:05 Corrected Sodium TNP 03/28/18 05:05 Potassium 3.4 mmol/L (3.5-5.1) L 03/28/18 05:05 Chloride 98 mmol/L (98-107) 03/28/18 05:05 Carbon Dioxide 26.5 mmol/L (21-32) 03/28/18 05:05 BUN 3 mg/dL (7-18) L 03/28/18 05:05 Creatinine 0.27 mg/dL (0.70-1.30) L 03/28/18 05:05 Est GFR (MDRD) Af Amer > 60 (>60) 03/28/18 05:05 Est GFR (MDRD) Non-Af > 60 (>60) 03/28/18 05:05 Glucose 102 mg/dL (65-99) H 03/28/18 05:05 Lactic Acid 1.3 mmol/L (0.4-2.0) 03/25/18 06:05 Calcium 7.9 mg/dL (8.5-10.1) L 03/28/18 05:05 Corrected Calcium 9.2 mg/dL (8.5-10.1) 03/28/18 05:05 Magnesium 2.0 mg/dL (1.7-2.9) 03/26/18 05:27 Total Bilirubin 0.30 mg/dL (0.2-1.0) 03/28/18 05:05 AST 20 Units/L (15-37) 03/28/18 05:05 ALT 23 Units/L (12-78) 03/28/18 05:05 Alkaline Phosphatase 57 Units/L (46-116) 03/28/18 05:05 Total Protein 7.2 g/dL (6.4-8.2) 03/28/18 05:05 Albumin 2.4 g/dL (3.4-5.0) L 03/28/18 05:05 Globulin 4.8 g/dL (2.5-4.5) H 03/28/18 05:05 Albumin/Globulin Ratio 0.5 Ratio (1.1-2.1) L 03/28/18 05:05 Specimen Type Random urine 03/22/18 02:32 Urine Color Yellow (YELLOW) 03/22/18 02:32 Urine Appearance Clear (CLEAR) 03/22/18 02:32 Urine pH 6.0 (5.0 - 8.0) 03/22/18 02:32 Ur Specific [place] 1.010 (1.000-1.030) 03/22/18 02:32 Urine Protein Negative (NEGATIVE) 03/22/18 02:32 Urine Glucose (UA) Negative (NEGATIVE) 03/22/18 02:32 Urine Ketones Negative (NEGATIVE) 03/22/18 02:32 Urine Occult Blood Negative (NEGATIVE) 03/22/18 02:32 Urine Nitrite Negative (NEGATIVE) 03/22/18 02:32 Urine Bilirubin Negative (NEGATIVE) 03/22/18 02:32 Urine Urobilinogen Normal (NORMAL) 03/22/18 02:32 Ur Leukocyte Esterase Negative (NEGATIVE) 03/22/18 02:32 Vancomycin Trough 5.1 ug/mL (15-20) L 03/27/18 05:25 Carbamazepine 9.2 ug/mL (4-12) 03/28/18 05:05 Levetiracetam 75 ug/mL (12-46) H 03/22/18 11:10 Phenobarbital 20.9 ug/mL (15-40) 03/28/18 05:05 Acetone, Semi-Quant Negative (NEGATIVE) 03/23/18 12:35 - Plan (1) Bacteremia Status: Acute Plan: REPEAT BLOOD CULTURES POSTIVE FOR STAPH AURICULARIS, CONTINUE IV ATBX. SURGICAL CONSULT FOR LINE REMOVAL. REPEAT AM LABS (2) Seizure disorder Status: Acute Plan: SEIZURE PRECAUTIONS. IV ATBX. KEPPRA LEVELS, ELEVATED PHENOBARBITAL LEVELS. REPEAT Q AM (3) Sinusitis Status: Acute (4) G tube feedings Status: Acute (5) 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 (6) Bacteremia associated with intravascular line Status: Acute Plan: IV VANCOMYCIN, REPEAT CULTURES NEGATIVE AT THIS TIME
[2018-03-28 14:55] LABS: CREATININE 0.34 mg/dL (0.70-1.30); VANCOMYCIN,TROUGH 10.4 ug/mL (15-20)
[2018-03-28] MEDS: VANCOMYCIN HCL IV SCH (15:55)
[2018-03-28] MEDS: D5W IV SCH (15:55)
[2018-03-28] MEDS: NS 1000 ML 1,000 ML IV SCH ×3 (15:55→20:23)
[2018-03-29] MEDS: NS 1000 ML 1,000 ML IV SCH ×3 (06:03→19:36)
[2018-03-29 06:19] LABS: BASOPHILS # (AUTO) 0.1 X10^3/uL (0.0-0.1); BASOPHILS % (AUTO) 0.8 % (0.2-1.0); EOSINOPHILS # (AUTO) 0.1 x10^3/uL (0.0-0.2); EOSINOPHILS % (AUTO) 0.8 % (0.9-2.9); HEMOGLOBIN 11.6 g/dL (13.5-18.0); LYMPHOCYTES # (AUTO) 2.8 X10^3/uL (1.3-2.9); LYMPHOCYTES % (AUTO) 29.9 % (21.0-51.0); MEAN CORPUSCULAR HEMOGLOBIN 32.2 pg (27.0-34.0); MEAN CORPUSCULAR HGB CONC 34.2 g/dL (33.0-35.0); MEAN PLATELET VOLUME 7.6 fL (7.4-11.0); MONOCYTES # (AUTO) 0.7 x10^3/uL (0.3-0.8); NEUTROPHILS # (AUTO) 5.7 x10^3/uL (2.2-4.8); NEUTROPHILS % (AUTO) 61.5 % (42.0-75.0); PLATELET COUNT 330 X10^3/uL (150.0-450.0); RED BLOOD COUNT 3.61 X10^6/uL (4.7-6.0); RED CELL DISTRIBUTION WIDTH 13.5 % (11.6-16.5); WHITE BLOOD COUNT 9.3 X10^3/uL (3.6-10.0)
--- NOTE | 2018-03-29 06:23 | RAD ---
Examination: Portable AP chest History: Fever, bronchitis Comparison 03/22/2018 Findings: Continued normal heart size. Interval appearance of right pleural effusion with suspect ass ociated airspace disease in the partly obscured right lung. The left lung is clear. No pneumothorax i s seen. Stable position of right subclavian injection port. Impression: Interval development of right pleural effusion and possible associated parenchymal abnorm ality in the underlying right lung. Follow-up indicated. Reported By:
[2018-03-29 06:37] LABS: ALANINE AMINOTRANSFERASE 32 Units/L (12-78); ALBUMIN 2.5 g/dL (3.4-5.0); ALKALINE PHOSPHATASE 54 Units/L (46-116); ASPARTATE AMINO TRANSFERASE 23 Units/L (15-37); BLOOD UREA NITROGEN 4 mg/dL (7-18); CALCIUM 8.1 mg/dL (8.5-10.1); CARBON DIOXIDE 27.6 mmol/L (21-32); CHLORIDE 100 mmol/L (98-107); COR CA(FOR HYPOALB) 9.3 mg/dL (8.5-10.1); CREATININE 0.37 mg/dL (0.70-1.30); SODIUM 135 mmol/L (136-145); TOTAL PROTEIN 7.3 g/dL (6.4-8.2); eGFR BLACK RACES > 60 (>60); eGFR NON BLACK RACES > 60 (>60)
[2018-03-29 07:05] LABS: PLATELET MORPHOLOGY COMMENT NORMAL (NORMAL)
[2018-03-29] MEDS: D5W IV SCH ×2 (08:37→20:43)
[2018-03-29] MEDS: VANCOMYCIN HCL IV SCH ×2 (08:37→20:43)
[2018-03-29] MEDS ORDERED: ATIVAN INJ 2 MG VIAL IVP ONE (11:01)
[2018-03-29] MEDS ORDERED: XYLOCAINE 1% and EPINEPHRINE 1:100,000 ONE (11:03)
[2018-03-29] MEDS: PHENOBARBITAL TAB 15 MG (16.2MG) PO SCH ×2 (11:57→20:43)
[2018-03-29] MEDS: LEVETIRACETAM GT SCH ×2 (11:59→20:43)
[2018-03-29] MEDS: CARBAMAZEPINE GT SCH ×2 (11:59→20:42)
--- NOTE | 2018-03-29 16:48 | PCM.PROG ---
Progress Note - Subjective Subjective: 30 BM ADMITTED ON 03/22 WITH UNCONTROLLED SEIZURES, ACUTE SINUSITIS, CONSTIPATION WITH FECAL IMPACTION AND POSITIVE BLOOD CULTURES. TODAY, HE IS ALERT IN BED ON MORNING ROUNDS. PATIENTS MOTHER IS AT BEDSIDE. SHE REPORTS THAT PATIENT HAS DONE WELL THROUGHOUT THE NIGHT AND THEY HAVE NO COMPLAINTS THIS MORNING. HIS VITALS THIS MORNING ARE 100.2-103-14-95%-123/79. ABNORMAL LAB VALUES INCLUDE THE FOLLOWING: RBC 3.61, HGB 11.6, HCT 34.0, SODIUM 134, BUN 4, CREATININE 0.37, GLUCOSE 104, CALCIUM 8.1, ALBUMIN 2.5. HAS BEEN CONSULTED FOR REMOVAL OF PORT A CATH DUE TO SEPSIS. 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 WE WILL CONTINUE CURRENT PLAN OF CARE TODAY AND CONTINUE TO MONITOR PATIENT. - Past Medical Family Social History Past Med/Fam/Surg Hx: No changes since H&P Allergies: Allergies Sulfa (Sulfonamide Antibiotics) [SULFA] Allergy (Verified 09/10/17 00:14) - Review of Systems ROS: No change since H&P - Vital Signs and I&O's Vital Signs: Temperature 99.6 F Pulse Rate [Left Brachial] 99 Pulse Rate 106 Respiratory Rate 12 Blood Pressure [Left Arm] 102/64 Blood Pressure [Left Calf] 100/58 Blood Pressure 92/46 O2 Sat by Pulse Oximetry 95 Intake and Output: Intake & Output 03/27/18 03/28/18 03/29/18 03/30/18 11:59 11:59 11:59 11:59 Intake Total 3142 2691 3934 570 Balance 3142 2691 3934 570 - Physical Exam Oriented: Other (APHASIC) Eyes: Normal Ear: Normal Nose: Discharge Throat: Red Respiratory: Diminished Cardiovascular: Normal : Normal Auscultation: Bowel Sounds: Normal Palpation: Normal Tenderness: Normal Skin: Normal Musculoskeletal: Deformity, Motor Deficit Mood Description: Flat Speech Pattern: Aphasic - Laboratory and Diagnostics Result Diagrams: 03/29/18 05:30 03/29/18 05:30 Labs: 03/23/18 19:38 Blood Blood Culture - Final 03/23/18 19:28 Blood Blood Culture - Final Staph Auricularis 03/22/18 00:04 Blood Blood Culture - Final 03/21/18 23:39 Blood Blood Culture - Final Staphylococcus Capitis Laboratory WBC 9.3 X10^3/uL (3.6-10.0) 03/29/18 05:30 RBC 3.61 X10^6/uL (4.7-6.0) L 03/29/18 05:30 Hgb 11.6 g/dL (13.5-18.0) L 03/29/18 05:30 Hct 34.0 % (42.0-54.0) L 03/29/18 05:30 MCV 94.0 fL (80.0-100.0) 03/29/18 05:30 MCH 32.2 pg (27.0-34.0) 03/29/18 05:30 MCHC 34.2 g/dL (33.0-35.0) 03/29/18 05:30 RDW 13.5 % (11.6-16.5) 03/29/18 05:30 Plt Count 330 X10^3/uL (150.0-450.0) 03/29/18 05:30 Plt Count Comment Adequate (ADEQUATE) 03/29/18 05:30 MPV 7.6 fL (7.4-11.0) 03/29/18 05:30 Neut % (Auto) 61.5 % (42.0-75.0) 03/29/18 05:30 Lymph % (Auto) 29.9 % (21.0-51.0) 03/29/18 05:30 [place] % (Auto) 7.0 % (0.0-13.0) 03/29/18 05:30 Eos % (Auto) 0.8 % (0.9-2.9) L 03/29/18 05:30 Baso % (Auto) 0.8 % (0.2-1.0) 03/29/18 05:30 Neut # (Auto) 5.7 x10^3/uL (2.2-4.8) H 03/29/18 05:30 Lymph # (Auto) 2.8 X10^3/uL (1.3-2.9) 03/29/18 05:30 [place] # (Auto) 0.7 x10^3/uL (0.3-0.8) 03/29/18 05:30 Eos # (Auto) 0.1 x10^3/uL (0.0-0.2) 03/29/18 05:30 Baso # (Auto) 0.1 X10^3/uL (0.0-0.1) 03/29/18 05:30 Absolute Nucleated RBC 0.0 /100WBC 03/29/18 05:30 Plt Morphology Comment Normal (NORMAL) 03/29/18 05:30 RBC Morphology Normal (NORMAL) 03/29/18 05:30 Sodium 135 mmol/L (136-145) L 03/29/18 05:30 Corrected Sodium TNP 03/29/18 05:30 Potassium 3.6 mmol/L (3.5-5.1) 03/29/18 05:30 Chloride 100 mmol/L (98-107) 03/29/18 05:30 Carbon Dioxide 27.6 mmol/L (21-32) 03/29/18 05:30 BUN 4 mg/dL (7-18) L 03/29/18 05:30 Creatinine 0.37 mg/dL (0.70-1.30) L 03/29/18 05:30 Est GFR (MDRD) Af Amer > 60 (>60) 03/29/18 05:30 Est GFR (MDRD) Non-Af > 60 (>60) 03/29/18 05:30 Glucose 104 mg/dL (65-99) H 03/29/18 05:30 Lactic Acid 1.3 mmol/L (0.4-2.0) 03/25/18 06:05 Calcium 8.1 mg/dL (8.5-10.1) L 03/29/18 05:30 Corrected Calcium 9.3 mg/dL (8.5-10.1) 03/29/18 05:30 Magnesium 2.0 mg/dL (1.7-2.9) 03/26/18 05:27 Total Bilirubin 0.30 mg/dL (0.2-1.0) 03/29/18 05:30 AST 23 Units/L (15-37) 03/29/18 05:30 ALT 32 Units/L (12-78) 03/29/18 05:30 Alkaline Phosphatase 54 Units/L (46-116) 03/29/18 05:30 Total Protein 7.3 g/dL (6.4-8.2) 03/29/18 05:30 Albumin 2.5 g/dL (3.4-5.0) L 03/29/18 05:30 Globulin 4.8 g/dL (2.5-4.5) H 03/29/18 05:30 Albumin/Globulin Ratio 0.5 Ratio (1.1-2.1) L 03/29/18 05:30 Specimen Type Random urine 03/22/18 02:32 Urine Color Yellow (YELLOW) 03/22/18 02:32 Urine Appearance Clear (CLEAR) 03/22/18 02:32 Urine pH 6.0 (5.0 - 8.0) 03/22/18 02:32 Ur Specific [place] 1.010 (1.000-1.030) 03/22/18 02:32 Urine Protein Negative (NEGATIVE) 03/22/18 02:32 Urine Glucose (UA) Negative (NEGATIVE) 03/22/18 02:32 Urine Ketones Negative (NEGATIVE) 03/22/18 02:32 Urine Occult Blood Negative (NEGATIVE) 03/22/18 02:32 Urine Nitrite Negative (NEGATIVE) 03/22/18 02:32 Urine Bilirubin Negative (NEGATIVE) 03/22/18 02:32 Urine Urobilinogen Normal (NORMAL) 03/22/18 02:32 Ur Leukocyte Esterase Negative (NEGATIVE) 03/22/18 02:32 Vancomycin Trough 10.4 ug/mL (15-20) L 03/28/18 14:10 Carbamazepine 9.2 ug/mL (4-12) 03/28/18 05:05 Levetiracetam 75 ug/mL (12-46) H 03/22/18 11:10 Phenobarbital 20.9 ug/mL (15-40) 03/28/18 05:05 Acetone, Semi-Quant Negative (NEGATIVE) 03/23/18 12:35
[2018-03-29] MEDS: POTASSIUM CHLORIDE LIQ 20 MEQ UDC PO PRN (20:44)
[2018-03-30] MEDS: TYLENOL SUPP 650 MG PR PRN (01:27)
[2018-03-30 05:44] LABS: BASOPHILS % (AUTO) 0.5 % (0.2-1.0); EOSINOPHILS # (AUTO) 0.1 x10^3/uL (0.0-0.2); EOSINOPHILS % (AUTO) 0.9 % (0.9-2.9); HEMATOCRIT 32.3 % (42.0-54.0); LYMPHOCYTES # (AUTO) 2.3 X10^3/uL (1.3-2.9); MEAN CORPUSCULAR HEMOGLOBIN 32.7 pg (27.0-34.0); MEAN CORPUSCULAR HGB CONC 34.2 g/dL (33.0-35.0); MEAN CORPUSCULAR VOLUME 95.4 fL (80.0-100.0); MONOCYTES # (AUTO) 0.7 x10^3/uL (0.3-0.8); MONOCYTES % (AUTO) 9.5 % (0.0-13.0); NEUTROPHILS # (AUTO) 3.9 x10^3/uL (2.2-4.8); NEUTROPHILS % (AUTO) 56.1 % (42.0-75.0); PLATELET COUNT 379 X10^3/uL (150.0-450.0); RED BLOOD COUNT 3.38 X10^6/uL (4.7-6.0); RED CELL DISTRIBUTION WIDTH 13.3 % (11.6-16.5); WHITE BLOOD COUNT 6.9 X10^3/uL (3.6-10.0)
[2018-03-30 06:09] LABS: ALANINE AMINOTRANSFERASE 33 Units/L (12-78); ALBUMIN 2.5 g/dL (3.4-5.0); ALKALINE PHOSPHATASE 54 Units/L (46-116); ASPARTATE AMINO TRANSFERASE 26 Units/L (15-37); BLOOD UREA NITROGEN 5 mg/dL (7-18); CALCIUM 8.3 mg/dL (8.5-10.1); CARBON DIOXIDE 27.5 mmol/L (21-32); CHLORIDE 98 mmol/L (98-107); COR CA(FOR HYPOALB) 9.5 mg/dL (8.5-10.1); CREATININE 0.35 mg/dL (0.70-1.30); SODIUM 134 mmol/L (136-145); TOTAL PROTEIN 7.5 g/dL (6.4-8.2); eGFR BLACK RACES > 60 (>60); eGFR NON BLACK RACES > 60 (>60)
[2018-03-30] MEDS: NS 1000 ML 1,000 ML IV SCH ×2 (08:47→18:36)
[2018-03-30] MEDS: PHENOBARBITAL TAB 15 MG (16.2MG) PO SCH ×2 (09:11→20:51)
[2018-03-30] MEDS: CARBAMAZEPINE GT SCH ×2 (09:13→20:50)
[2018-03-30] MEDS: LEVETIRACETAM GT SCH ×2 (09:13→20:50)
[2018-03-30] MEDS: VANCOMYCIN HCL IV SCH (10:05)
[2018-03-30] MEDS: D5W IV SCH (10:05)
[2018-03-30] MEDS: ZYVOX TAB 600 MG PEG SCH ×2 (10:14→20:51)
[2018-03-30] MEDS ORDERED: ROCEPHIN VIAL 1 GM IM SCH (11:15)
[2018-03-30] MEDS ORDERED: XYLOCAINE 2 % (PLAIN) ONE (11:43)
--- NOTE | 2018-03-30 15:33 | PCM.PROG ---
Progress Note - Progress Note for Day of Date: 03/30/18 - Subjective Subjective: 28 BM ADMITTED ON 03/22 WITH UNCONTROLLED SEIZURES, ACUTE SINUSITIS, CONSTIPATION WITH FECAL IMPACTION AND POSITIVE BLOOD CULTURES. TODAY, HE IS ALERT IN BED ON MORNING ROUNDS. PATIENTS MOTHER IS AT BEDSIDE. SHE VERBALIZES NO COMPLAINTS THIS MORNING AND PATIENT IS IN NO APPEARENT DISTRESS. HIS VITALS THIS MORNING ARE 99.8-95-18-95%-103/66. HE IS HEMODYNAMICALLY STABLE TODAY. REMOVED PORT A CATH AT BEDSIDE YESTERDAY. 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 WE WILL CONTINUE CURRENT PLAN OF CARE TODAY AND CONTINUE TO MONITOR PATIENT. - Past Medical Family Social History Past Med/Fam/Surg Hx: No changes since H&P Allergies: Allergies Sulfa (Sulfonamide Antibiotics) [SULFA] Allergy (Verified 09/10/17 00:14) - Review of Systems ROS: No change since H&P - Vital Signs and I&O's Vital Signs: Temperature 98.3 F Pulse Rate [Left Brachial] 94 Pulse Rate 106 Respiratory Rate 15 Blood Pressure [Left Arm] 117/73 Blood Pressure [Left Calf] 100/58 Blood Pressure 92/46 O2 Sat by Pulse Oximetry 96 Intake and Output: Intake & Output 03/28/18 03/29/18 03/30/18 03/31/18 11:59 11:59 11:59 11:59 Intake Total 2691 3934 1460 440 Balance 2691 3934 1460 440 - Physical Exam Oriented: Other (APHASIC) Eyes: Normal Ear: Normal Nose: Discharge Throat: Red Respiratory: Diminished Cardiovascular: Normal : Normal Auscultation: Bowel Sounds: Normal Palpation: Normal Tenderness: Normal Skin: Normal Musculoskeletal: Deformity, Motor Deficit Mood Description: Flat Speech Pattern: Aphasic - Laboratory and Diagnostics Result Diagrams: 03/30/18 05:10 03/30/18 05:10 Labs: 03/29/18 12:19 Catheter Tip - Subclavian - Preliminary 03/23/18 19:38 Blood Blood Culture - Final 03/23/18 19:28 Blood Blood Culture - Final Staph Auricularis 03/22/18 00:04 Blood Blood Culture - Final 03/21/18 23:39 Blood Blood Culture - Final Staphylococcus Capitis Laboratory WBC 6.9 X10^3/uL (3.6-10.0) 03/30/18 05:10 RBC 3.38 X10^6/uL (4.7-6.0) L 03/30/18 05:10 Hgb 11.0 g/dL (13.5-18.0) L 03/30/18 05:10 Hct 32.3 % (42.0-54.0) L 03/30/18 05:10 MCV 95.4 fL (80.0-100.0) 03/30/18 05:10 MCH 32.7 pg (27.0-34.0) 03/30/18 05:10 MCHC 34.2 g/dL (33.0-35.0) 03/30/18 05:10 RDW 13.3 % (11.6-16.5) 03/30/18 05:10 Plt Count 379 X10^3/uL (150.0-450.0) 03/30/18 05:10 Plt Count Comment Adequate (ADEQUATE) 03/29/18 05:30 MPV 7.0 fL (7.4-11.0) L 03/30/18 05:10 Neut % (Auto) 56.1 % (42.0-75.0) 03/30/18 05:10 Lymph % (Auto) 33.0 % (21.0-51.0) 03/30/18 05:10 [place] % (Auto) 9.5 % (0.0-13.0) 03/30/18 05:10 Eos % (Auto) 0.9 % (0.9-2.9) 03/30/18 05:10 Baso % (Auto) 0.5 % (0.2-1.0) 03/30/18 05:10 Neut # (Auto) 3.9 x10^3/uL (2.2-4.8) 03/30/18 05:10 Lymph # (Auto) 2.3 X10^3/uL (1.3-2.9) 03/30/18 05:10 [place] # (Auto) 0.7 x10^3/uL (0.3-0.8) 03/30/18 05:10 Eos # (Auto) 0.1 x10^3/uL (0.0-0.2) 03/30/18 05:10 Baso # (Auto) 0.0 X10^3/uL (0.0-0.1) 03/30/18 05:10 Absolute Nucleated RBC 0.1 /100WBC 03/30/18 05:10 Plt Morphology Comment Normal (NORMAL) 03/29/18 05:30 RBC Morphology Normal (NORMAL) 03/29/18 05:30 Sodium 134 mmol/L (136-145) L 03/30/18 05:10 Corrected Sodium TNP 03/30/18 05:10 Potassium 3.5 mmol/L (3.5-5.1) 03/30/18 05:10 Chloride 98 mmol/L (98-107) 03/30/18 05:10 Carbon Dioxide 27.5 mmol/L (21-32) 03/30/18 05:10 BUN 5 mg/dL (7-18) L 03/30/18 05:10 Creatinine 0.35 mg/dL (0.70-1.30) L 03/30/18 05:10 Est GFR (MDRD) Af Amer > 60 (>60) 03/30/18 05:10 Est GFR (MDRD) Non-Af > 60 (>60) 03/30/18 05:10 Glucose 99 mg/dL (65-99) 03/30/18 05:10 Lactic Acid 1.3 mmol/L (0.4-2.0) 03/25/18 06:05 Calcium 8.3 mg/dL (8.5-10.1) L 03/30/18 05:10 Corrected Calcium 9.5 mg/dL (8.5-10.1) 03/30/18 05:10 Magnesium 2.0 mg/dL (1.7-2.9) 03/30/18 05:10 Total Bilirubin 0.30 mg/dL (0.2-1.0) 03/30/18 05:10 AST 26 Units/L (15-37) 03/30/18 05:10 ALT 33 Units/L (12-78) 03/30/18 05:10 Alkaline Phosphatase 54 Units/L (46-116) 03/30/18 05:10 Total Protein 7.5 g/dL (6.4-8.2) 03/30/18 05:10 Albumin 2.5 g/dL (3.4-5.0) L 03/30/18 05:10 Globulin 5.0 g/dL (2.5-4.5) H 03/30/18 05:10 Albumin/Globulin Ratio 0.5 Ratio (1.1-2.1) L 03/30/18 05:10 Specimen Type Random urine 03/22/18 02:32 Urine Color Yellow (YELLOW) 03/22/18 02:32 Urine Appearance Clear (CLEAR) 03/22/18 02:32 Urine pH 6.0 (5.0 - 8.0) 03/22/18 02:32 Ur Specific [place] 1.010 (1.000-1.030) 03/22/18 02:32 Urine Protein Negative (NEGATIVE) 03/22/18 02:32 Urine Glucose (UA) Negative (NEGATIVE) 03/22/18 02:32 Urine Ketones Negative (NEGATIVE) 03/22/18 02:32 Urine Occult Blood Negative (NEGATIVE) 03/22/18 02:32 Urine Nitrite Negative (NEGATIVE) 03/22/18 02:32 Urine Bilirubin Negative (NEGATIVE) 03/22/18 02:32 Urine Urobilinogen Normal (NORMAL) 03/22/18 02:32 Ur Leukocyte Esterase Negative (NEGATIVE) 03/22/18 02:32 Vancomycin Trough 10.4 ug/mL (15-20) L 03/28/18 14:10 Carbamazepine 9.2 ug/mL (4-12) 03/28/18 05:05 Levetiracetam 10 ug/mL (12-46) L 03/27/18 05:25 Phenobarbital 20.9 ug/mL (15-40) 03/28/18 05:05 Acetone, Semi-Quant Negative (NEGATIVE) 03/23/18 12:35
[2018-03-30] MEDS: POTASSIUM CHLORIDE LIQ 20 MEQ UDC PO PRN (20:51)
[2018-03-31 05:23] LABS: BASOPHILS % (AUTO) 0.7 % (0.2-1.0); EOSINOPHILS # (AUTO) 0.1 x10^3/uL (0.0-0.2); HEMOGLOBIN 11.8 g/dL (13.5-18.0); LYMPHOCYTES # (AUTO) 1.7 X10^3/uL (1.3-2.9); LYMPHOCYTES % (AUTO) 28.4 % (21.0-51.0); MEAN CORPUSCULAR HEMOGLOBIN 33.1 pg (27.0-34.0); MEAN CORPUSCULAR HGB CONC 34.8 g/dL (33.0-35.0); MEAN CORPUSCULAR VOLUME 95.1 fL (80.0-100.0); MONOCYTES # (AUTO) 0.7 x10^3/uL (0.3-0.8); MONOCYTES % (AUTO) 10.8 % (0.0-13.0); NEUTROPHILS # (AUTO) 3.5 x10^3/uL (2.2-4.8); NEUTROPHILS % (AUTO) 58.1 % (42.0-75.0); PLATELET COUNT 514 X10^3/uL (150.0-450.0); RED BLOOD COUNT 3.57 X10^6/uL (4.7-6.0); RED CELL DISTRIBUTION WIDTH 13.5 % (11.6-16.5); WHITE BLOOD COUNT 6.1 X10^3/uL (3.6-10.0)
[2018-03-31 05:47] LABS: ALANINE AMINOTRANSFERASE 50 Units/L (12-78); ALBUMIN 2.7 g/dL (3.4-5.0); ALKALINE PHOSPHATASE 53 Units/L (46-116); ASPARTATE AMINO TRANSFERASE 38 Units/L (15-37); BLOOD UREA NITROGEN 5 mg/dL (7-18); CALCIUM 8.6 mg/dL (8.5-10.1); CARBON DIOXIDE 28.2 mmol/L (21-32); CHLORIDE 96 mmol/L (98-107); COR CA(FOR HYPOALB) 9.6 mg/dL (8.5-10.1); CREATININE 0.33 mg/dL (0.70-1.30); SODIUM 133 mmol/L (136-145); eGFR BLACK RACES > 60 (>60); eGFR NON BLACK RACES > 60 (>60)
[2018-03-31] MEDS: NS 1000 ML 1,000 ML IV SCH ×2 (07:28→23:19)
[2018-03-31] MEDS: CARBAMAZEPINE GT SCH ×2 (08:43→21:00)
[2018-03-31] MEDS: PHENOBARBITAL TAB 15 MG (16.2MG) PO SCH ×2 (08:43→21:01)
[2018-03-31] MEDS: LEVETIRACETAM GT SCH ×2 (08:43→21:01)
[2018-03-31] MEDS ORDERED: ROCEPHIN VIAL 1 GM IM SCH (09:00)
[2018-03-31] MEDS: RIFADIN CAP 300 MG PO SCH ×2 (10:26→21:02)
[2018-03-31] MEDS ORDERED: ZOFRAN INJ 4 MG VIAL ONE (21:23)
[2018-04-01 06:00] LABS: BASOPHILS % (AUTO) 0.9 % (0.2-1.0); EOSINOPHILS # (AUTO) 0.1 x10^3/uL (0.0-0.2); EOSINOPHILS % (AUTO) 1.3 % (0.9-2.9); HEMATOCRIT 33.8 % (42.0-54.0); HEMOGLOBIN 11.8 g/dL (13.5-18.0); LYMPHOCYTES # (AUTO) 1.4 X10^3/uL (1.3-2.9); LYMPHOCYTES % (AUTO) 30.4 % (21.0-51.0); MEAN CORPUSCULAR HEMOGLOBIN 33.1 pg (27.0-34.0); MEAN CORPUSCULAR HGB CONC 35.1 g/dL (33.0-35.0); MEAN CORPUSCULAR VOLUME 94.4 fL (80.0-100.0); MONOCYTES # (AUTO) 0.4 x10^3/uL (0.3-0.8); MONOCYTES % (AUTO) 8.9 % (0.0-13.0); NEUTROPHILS # (AUTO) 2.7 x10^3/uL (2.2-4.8); NEUTROPHILS % (AUTO) 58.5 % (42.0-75.0); PLATELET COUNT 548 X10^3/uL (150.0-450.0); RED BLOOD COUNT 3.58 X10^6/uL (4.7-6.0); RED CELL DISTRIBUTION WIDTH 13.5 % (11.6-16.5); WHITE BLOOD COUNT 4.7 X10^3/uL (3.6-10.0)
[2018-04-01 06:11] LABS: ALANINE AMINOTRANSFERASE 74 Units/L (12-78); ALBUMIN 2.8 g/dL (3.4-5.0); ALKALINE PHOSPHATASE 61 Units/L (46-116); ASPARTATE AMINO TRANSFERASE 53 Units/L (15-37); BLOOD UREA NITROGEN 5 mg/dL (7-18); CALCIUM 8.6 mg/dL (8.5-10.1); CARBON DIOXIDE 29.1 mmol/L (21-32); CHLORIDE 96 mmol/L (98-107); COR CA(FOR HYPOALB) 9.6 mg/dL (8.5-10.1); CREATININE 0.36 mg/dL (0.70-1.30); SODIUM 134 mmol/L (136-145); TOTAL PROTEIN 8.3 g/dL (6.4-8.2); eGFR BLACK RACES > 60 (>60); eGFR NON BLACK RACES > 60 (>60)
[2018-04-01] MEDS: NS 1000 ML 1,000 ML IV SCH ×2 (09:16→23:45)
[2018-04-01] MEDS: RIFADIN CAP 300 MG PO SCH ×2 (09:20→20:38)
[2018-04-01] MEDS: PHENOBARBITAL TAB 15 MG (16.2MG) PO SCH ×2 (09:20→20:38)
[2018-04-01] MEDS: CARBAMAZEPINE GT SCH ×2 (09:21→20:38)
[2018-04-01] MEDS: LEVETIRACETAM GT SCH ×2 (09:21→20:38)
[2018-04-02 06:19] LABS: BASOPHILS % (AUTO) 0.8 % (0.2-1.0); EOSINOPHILS # (AUTO) 0.1 x10^3/uL (0.0-0.2); EOSINOPHILS % (AUTO) 1.7 % (0.9-2.9); HEMATOCRIT 34.9 % (42.0-54.0); HEMOGLOBIN 12.4 g/dL (13.5-18.0); LYMPHOCYTES % (AUTO) 42.7 % (21.0-51.0); MEAN CORPUSCULAR HEMOGLOBIN 33.3 pg (27.0-34.0); MEAN CORPUSCULAR HGB CONC 35.7 g/dL (33.0-35.0); MEAN CORPUSCULAR VOLUME 93.2 fL (80.0-100.0); MONOCYTES # (AUTO) 0.5 x10^3/uL (0.3-0.8); MONOCYTES % (AUTO) 10.2 % (0.0-13.0); NEUTROPHILS # (AUTO) 2.1 x10^3/uL (2.2-4.8); NEUTROPHILS % (AUTO) 44.6 % (42.0-75.0); PLATELET COUNT 663 X10^3/uL (150.0-450.0); RED BLOOD COUNT 3.74 X10^6/uL (4.7-6.0); RED CELL DISTRIBUTION WIDTH 13.6 % (11.6-16.5); WHITE BLOOD COUNT 4.7 X10^3/uL (3.6-10.0)
[2018-04-02 06:37] LABS: ALANINE AMINOTRANSFERASE 108 Units/L (12-78); ALKALINE PHOSPHATASE 60 Units/L (46-116); ASPARTATE AMINO TRANSFERASE 49 Units/L (15-37); BLOOD UREA NITROGEN 5 mg/dL (7-18); CALCIUM 8.8 mg/dL (8.5-10.1); CARBON DIOXIDE 28.9 mmol/L (21-32); CHLORIDE 96 mmol/L (98-107); COR CA(FOR HYPOALB) 9.6 mg/dL (8.5-10.1); CREATININE 0.38 mg/dL (0.70-1.30); SODIUM 134 mmol/L (136-145); TOTAL PROTEIN 8.7 g/dL (6.4-8.2); eGFR BLACK RACES > 60 (>60); eGFR NON BLACK RACES > 60 (>60)
[2018-04-02 06:41] LABS: PLATELET MORPHOLOGY COMMENT NORMAL (NORMAL)
[2018-04-02] MEDS: CARBAMAZEPINE GT SCH ×2 (09:42→21:35)
[2018-04-02] MEDS: RIFADIN CAP 300 MG PO SCH ×2 (09:42→21:34)
[2018-04-02] MEDS: PHENOBARBITAL TAB 15 MG (16.2MG) PO SCH ×2 (09:42→21:33)
[2018-04-02] MEDS: LEVETIRACETAM GT SCH ×2 (09:43→21:37)
[2018-04-02] MEDS ORDERED: XYLOCAINE 1 % (PLAIN) ONE (12:07)
--- NOTE | 2018-04-02 12:51 | DR.UPDATE ---
H&P Update History and Physical Update: History and Physical reviewed and patient examined. Changes noted: NO Yes with the following:Agree with H&P from Dr Eagle. Will place picc for long-term abx therapy Procedures (ALL) - Central Line Placement PCM.CLCO: written consent Time out performed: Yes Patient placed pm monitor/pulse ox: Yes prep: mask, gown, gloves, other Centrial line prep: chlorhexidine scrub Local anesthsia used: lidocane 1% Ultrasound used for placement: Yes (right basilic vein identified) Central line lumen ininserted: double (5fr power port. trimmed length 45cm with 5cm exposed) Post procedure: good blood return, all ports aspirated, flushed,capped, sterile dressing applied Post procedure xray: tip oc catheter in good position Patient tolerated procedure: Yes Complications: none
--- NOTE | 2018-04-02 13:10 | RAD ---
Examination: Portable AP chest History: PICC line placement Comparison March 29, 2018 Findings: There has been interval placement of a right subclavian PICC line which is coiled in the ri ght heart and courses cephalad perhaps along the pulmonary outflow tract or a congenitally patent for amen and which should be withdrawn at least 6 cm for optimal placement and for which repeat radiograp hy is recommended. Sternotomy wires are noted. There is suboptimal positioning with the patient rotat ed. Heart is normal. The left lung is clear. Again noted is a small to moderate volume right pleural effusion with underlying consolidation representing atelectasis versus pneumonia. There is no pneumot horax. Impression: PICC line placement as above. Reported By:
--- NOTE | 2018-04-02 13:23 | DR.ADDEND ---
Addendum - Addendum Addendum: picc withdrawn 7cm to a total of 12cm exposed. under strict sterile technique. sterile occlusive dressing applied. CXR pending
--- NOTE | 2018-04-02 14:23 | RAD ---
HISTORY: PICC line placement. Study: Portable chest. Comparison: Chest x-ray dated same day. Findings: There has been interval adjustment of a right PICC line whose tip is within the lower right ventricle . The heart appears unchanged. The patient is slightly rotated. Increasing opacification of the right lung. Likely small to moderate-sized right pleural effusion. The left lung is clear. No obvious pneu mothorax. The osseous structures appear unchanged. Partially visualized [place] rods are again see n. IMPRESSION: 1. Right PICC line whose tip is within the lower right ventricle. Recommend pulling PICC line back ap proximately 7-8 cm. 2. Worsening right lung aeration. Reported By:
[2018-04-02] MEDS: NS 1000 ML 1,000 ML IV SCH (16:55)
--- NOTE | 2018-04-02 16:57 | DR.ADDEND ---
Addendum - Addendum Addendum: per cxr report, picc withdrawn to 20cm exposed. 45cm cut length.
--- NOTE | 2018-04-02 17:12 | RAD ---
HISTORY: Right-sided PICC placement Study: Single view chest Comparison: Earlier same day Findings: Single portable view is new submitted, limited by patient's condition and positioning right-sided PIC C tip now terminates in the region of the SVC. Stable appearance of the soft tissues. No pneumothorax identified. IMPRESSION: 1. Right-sided PICC now terminates in the region of the SVC. Reported By:
[2018-04-02] MEDS ORDERED: TYLENOL 325 MG TAB PO PRN (20:19)
[2018-04-02] MEDS: TYLENOL SUPP 650 MG PR PRN (20:39)
[2018-04-03 06:27] LABS: BASOPHILS # (AUTO) 0.1 X10^3/uL (0.0-0.1); BASOPHILS % (AUTO) 1.6 % (0.2-1.0); EOSINOPHILS # (AUTO) 0.1 x10^3/uL (0.0-0.2); EOSINOPHILS % (AUTO) 1.5 % (0.9-2.9); HEMATOCRIT 37.5 % (42.0-54.0); HEMOGLOBIN 12.9 g/dL (13.5-18.0); LYMPHOCYTES # (AUTO) 1.6 X10^3/uL (1.3-2.9); LYMPHOCYTES % (AUTO) 37.9 % (21.0-51.0); MEAN CORPUSCULAR HEMOGLOBIN 32.4 pg (27.0-34.0); MEAN CORPUSCULAR HGB CONC 34.4 g/dL (33.0-35.0); MEAN CORPUSCULAR VOLUME 94.2 fL (80.0-100.0); MEAN PLATELET VOLUME 6.7 fL (7.4-11.0); MONOCYTES # (AUTO) 0.5 x10^3/uL (0.3-0.8); MONOCYTES % (AUTO) 11.5 % (0.0-13.0); NEUTROPHILS % (AUTO) 47.5 % (42.0-75.0); PLATELET COUNT 665 X10^3/uL (150.0-450.0); RED BLOOD COUNT 3.98 X10^6/uL (4.7-6.0); RED CELL DISTRIBUTION WIDTH 13.7 % (11.6-16.5); WHITE BLOOD COUNT 4.3 X10^3/uL (3.6-10.0)
[2018-04-03 07:02] LABS: ALANINE AMINOTRANSFERASE 258 Units/L (12-78); ALBUMIN 3.3 g/dL (3.4-5.0); ALKALINE PHOSPHATASE 65 Units/L (46-116); ASPARTATE AMINO TRANSFERASE 171 Units/L (15-37); BLOOD UREA NITROGEN 7 mg/dL (7-18); CALCIUM 8.9 mg/dL (8.5-10.1); CARBON DIOXIDE 27.3 mmol/L (21-32); CHLORIDE 95 mmol/L (98-107); COR CA(FOR HYPOALB) 9.5 mg/dL (8.5-10.1); CREATININE 0.33 mg/dL (0.70-1.30); SODIUM 133 mmol/L (136-145); TOTAL PROTEIN 9.1 g/dL (6.4-8.2); eGFR BLACK RACES > 60 (>60); eGFR NON BLACK RACES > 60 (>60)
[2018-04-03 07:16] LABS: PLATELET MORPHOLOGY COMMENT NORMAL (NORMAL)
[2018-04-03] MEDS: LEVETIRACETAM GT SCH (09:50)
[2018-04-03] MEDS: RIFADIN CAP 300 MG PO SCH (09:50)
[2018-04-03] MEDS: PHENOBARBITAL TAB 15 MG (16.2MG) PO SCH (09:50)
[2018-04-03] MEDS: CARBAMAZEPINE GT SCH (09:50)
[2018-04-03 10:51] VITALS: BP 114/77
== END 2018-04-03 11:30 | disposition swing bed (61) | DRG 100 ==
LOC: ER 22:40 → UNDOADMOB 03-22 01:20 → OBSVTOIN 03-22 01:20 → ICU 03-22 01:20 → INTOOBSV 03-22 01:20 → ICU 03-22 01:46
PROVIDERS: ADMIT Internal Medicine; ATTEND Internal Medicine
PROC: 05H533Z Insertion of Infusion Device into Right Subclavian Vein, Percutaneous Approach (ICD-10-PCS; principal; 2018-04-02)
DX: G40.802 Other epilepsy, not intractable, without status epilepticus (principal); A41.89 Other specified sepsis; G80.2 Spastic hemiplegic cerebral palsy; T82.7XXA Infection and inflammatory reaction due to other cardiac and vascular devices, implants and grafts, initial encounter; E87.1 Hypo-osmolality and hyponatremia; Z93.1 Gastrostomy status; J01.30 Acute sphenoidal sinusitis, unspecified; K56.41 Fecal impaction; J42 Unspecified chronic bronchitis
CPT/HCPCS: 36415; 70450; 71045; 74018; 76000; 80053; 80156; 80177; 80184; 80202; 81003; 82009; 82565; 83605; 83735; 84132; 85025; 87040; 87070; 87077; 87186; 96365; 96374; 99283; 99284; A4216; A4222; J0456; J0696; J1885; J2001; J2060; J2405; J3370; J3480

== ENCOUNTER 2018-04-03 11:30 | Inpatient (IN) | payer OTHER, MEDICAID ==
[2018-04-03] MEDS ORDERED: TYLENOL SUPP 650 MG PR PRN (13:03)
[2018-04-03] MEDS ORDERED: NS 500 ML IV 500 ML IV ONE (14:24)
[2018-04-03] MEDS: VANCOMYCIN HCL 500 MG VIAL 750 MG in D5W 250 ML IV 250 ML IV SCH ×2 (15:01→22:08)
[2018-04-03] MEDS: NS 500 ML IV 500 ML IV PRN (15:06)
[2018-04-03 16:53] VITALS: BMI 25.9
--- NOTE | 2018-04-03 17:52 | DR.UPDATE ---
H&P Update History and Physical Update: History and Physical reviewed and patient examined. H& P on 03/22/2018 without changes
[2018-04-03] MEDS: KEPPRA ORAL SOLN PO SCH (21:00)
[2018-04-03] MEDS: CARBAMAZEPINE GT SCH (21:05)
[2018-04-03] MEDS: PHENOBARBITAL TAB 15 MG (16.2MG) PO SCH (21:05)
[2018-04-04] MEDS: VANCOMYCIN HCL 500 MG VIAL 750 MG in D5W 250 ML IV 250 ML IV SCH (05:36)
[2018-04-04] MEDS: KEPPRA ORAL SOLN PO SCH ×2 (08:32→21:19)
[2018-04-04] MEDS: PHENOBARBITAL TAB 15 MG (16.2MG) PO SCH ×2 (08:33→21:20)
[2018-04-04] MEDS: CARBAMAZEPINE GT SCH ×2 (08:33→21:20)
[2018-04-04 13:33] LABS: CREATININE 0.39 mg/dL (0.70-1.30); VANCOMYCIN,TROUGH 9.6 ug/mL (15-20)
[2018-04-04] MEDS: VANCOMYCIN HCL 1 GM VIAL 1 GM in D5W 250 ML IV 250 ML IV SCH ×2 (14:40→21:31)
[2018-04-05] MEDS: VANCOMYCIN HCL 1 GM VIAL 1 GM in D5W 250 ML IV 250 ML IV SCH ×3 (05:39→21:24)
[2018-04-05] MEDS: PHENOBARBITAL TAB 15 MG (16.2MG) PO SCH ×2 (10:06→21:24)
[2018-04-05] MEDS: KEPPRA ORAL SOLN PO SCH ×2 (10:06→21:26)
[2018-04-05] MEDS: CARBAMAZEPINE GT SCH ×2 (10:07→21:26)
[2018-04-05] MEDS ORDERED: PHARMACY COMMENT IV NR (13:30)
[2018-04-05 21:52] LABS: CREATININE 0.42 mg/dL (0.70-1.30); VANCOMYCIN,TROUGH 12.1 ug/mL (15-20)
[2018-04-06] MEDS: VANCOMYCIN HCL 1 GM VIAL 1 GM in D5W 250 ML IV 250 ML IV SCH ×3 (05:35→22:19)
[2018-04-06 06:06] LABS: BASOPHILS # (AUTO) 0.1 X10^3/uL (0.0-0.1); BASOPHILS % (AUTO) 1.2 % (0.2-1.0); EOSINOPHILS % (AUTO) 0.7 % (0.9-2.9); HEMATOCRIT 36.2 % (42.0-54.0); HEMOGLOBIN 12.6 g/dL (13.5-18.0); LYMPHOCYTES # (AUTO) 1.9 X10^3/uL (1.3-2.9); LYMPHOCYTES % (AUTO) 41.1 % (21.0-51.0); MEAN CORPUSCULAR HEMOGLOBIN 32.8 pg (27.0-34.0); MEAN CORPUSCULAR HGB CONC 34.9 g/dL (33.0-35.0); MEAN CORPUSCULAR VOLUME 94.1 fL (80.0-100.0); MEAN PLATELET VOLUME 6.8 fL (7.4-11.0); MONOCYTES # (AUTO) 0.5 x10^3/uL (0.3-0.8); MONOCYTES % (AUTO) 10.3 % (0.0-13.0); NEUTROPHILS # (AUTO) 2.2 x10^3/uL (2.2-4.8); NEUTROPHILS % (AUTO) 46.7 % (42.0-75.0); PLATELET COUNT 675 X10^3/uL (150.0-450.0); RED BLOOD COUNT 3.85 X10^6/uL (4.7-6.0); RED CELL DISTRIBUTION WIDTH 13.9 % (11.6-16.5); WHITE BLOOD COUNT 4.7 X10^3/uL (3.6-10.0)
[2018-04-06 06:16] LABS: ALANINE AMINOTRANSFERASE 358 Units/L (12-78); ALBUMIN 3.4 g/dL (3.4-5.0); ALKALINE PHOSPHATASE 62 Units/L (46-116); ASPARTATE AMINO TRANSFERASE 186 Units/L (15-37); BLOOD UREA NITROGEN 4 mg/dL (7-18); CALCIUM 9.1 mg/dL (8.5-10.1); CARBON DIOXIDE 30.2 mmol/L (21-32); CHLORIDE 96 mmol/L (98-107); CREATININE 0.37 mg/dL (0.70-1.30); SODIUM 135 mmol/L (136-145); TOTAL PROTEIN 9.2 g/dL (6.4-8.2); eGFR BLACK RACES > 60 (>60); eGFR NON BLACK RACES > 60 (>60)
[2018-04-06 06:51] LABS: PLATELET MORPHOLOGY COMMENT NORMAL (NORMAL)
[2018-04-06] MEDS: PHENOBARBITAL TAB 15 MG (16.2MG) PO SCH ×2 (09:03→22:10)
[2018-04-06] MEDS: CARBAMAZEPINE GT SCH ×2 (09:05→22:19)
[2018-04-06] MEDS: KEPPRA ORAL SOLN PO SCH ×2 (09:05→22:19)
--- NOTE | 2018-04-06 16:02 | PCM.PROG ---
Progress Note - Progress Note for Day of Date: 04/06/18 - Subjective Subjective: IS SWINGBED STATUS FOR ANTIBIOTIC THERAPY. HE IS LYING IN BED ON MORNING ROUNDS IN NO APPARENT DISTRESS. MOTHER IS AT BEDSIDE AND REPORTS NO COMPLAINTS. HIS VITALS TODAY ARE 99.8-128-20-96%-120/75. HE IS HEMODYNAMICALLY STABLE TODAY. HE CONTINUES TO RECEIVE VANCOMYCIN 1GM IV Q8H FOR BACTEREMIA AND PAC LINE SEPSIS. WE WILL CONTINUE WITH CURRENT PLAN OF CARE TODAY. - Past Medical Family Social History Past Med/Fam/Surg Hx: No changes since H&P Allergies: Allergies Sulfa (Sulfonamide Antibiotics) [SULFA] Allergy (Verified 09/10/17 00:14) - Review of Systems ROS: No change since H&P - Vital Signs and I&O's Vital Signs: Temperature 99.8 F Pulse Rate [Right Radial] 128 Respiratory Rate 20 Blood Pressure [Left Arm] 120/75 Blood Pressure [Left Calf] 100/58 Blood Pressure 114/77 O2 Sat by Pulse Oximetry 96 Intake and Output: Intake & Output 04/04/18 04/05/18 04/06/18 04/07/18 11:59 11:59 11:59 11:59 Intake Total 1755 1595 750 150 Balance 1755 1595 750 150 - Physical Exam Oriented: Not Oriented Eyes: Normal Ear: Normal Nose: Normal Throat: Normal Respiratory: Normal Cardiovascular: Normal : Normal Auscultation: Bowel Sounds: Normal Palpation: Normal Tenderness: Normal Skin: Normal Musculoskeletal: Normal Psychiatric: Normal Mood Description: Calm Affect: Normal Speech Pattern: Aphasic - Laboratory and Diagnostics Result Diagrams: 04/06/18 05:25 04/06/18 05:25 Labs: Laboratory WBC 4.7 X10^3/uL (3.6-10.0) 04/06/18 05:25 RBC 3.85 X10^6/uL (4.7-6.0) L 04/06/18 05:25 Hgb 12.6 g/dL (13.5-18.0) L 04/06/18 05:25 Hct 36.2 % (42.0-54.0) L 04/06/18 05:25 MCV 94.1 fL (80.0-100.0) 04/06/18 05:25 MCH 32.8 pg (27.0-34.0) 04/06/18 05:25 MCHC 34.9 g/dL (33.0-35.0) 04/06/18 05:25 RDW 13.9 % (11.6-16.5) 04/06/18 05:25 Plt Count 675 X10^3/uL (150.0-450.0) H 04/06/18 05:25 Plt Count Comment Adequate (ADEQUATE) 04/06/18 05:25 MPV 6.8 fL (7.4-11.0) L 04/06/18 05:25 Neut % (Auto) 46.7 % (42.0-75.0) 04/06/18 05:25 Lymph % (Auto) 41.1 % (21.0-51.0) 04/06/18 05:25 [place] % (Auto) 10.3 % (0.0-13.0) 04/06/18 05:25 Eos % (Auto) 0.7 % (0.9-2.9) L 04/06/18 05:25 Baso % (Auto) 1.2 % (0.2-1.0) H 04/06/18 05:25 Neut # (Auto) 2.2 x10^3/uL (2.2-4.8) 04/06/18 05:25 Lymph # (Auto) 1.9 X10^3/uL (1.3-2.9) 04/06/18 05:25 [place] # (Auto) 0.5 x10^3/uL (0.3-0.8) 04/06/18 05:25 Eos # (Auto) 0.0 x10^3/uL (0.0-0.2) 04/06/18 05:25 Baso # (Auto) 0.1 X10^3/uL (0.0-0.1) 04/06/18 05:25 Absolute Nucleated RBC 0.0 /100WBC 04/06/18 05:25 Plt Morphology Comment Normal (NORMAL) 04/06/18 05:25 RBC Morphology Normal (NORMAL) 04/06/18 05:25 Sodium 135 mmol/L (136-145) L 04/06/18 05:25 Corrected Sodium TNP 04/06/18 05:25 Potassium 3.9 mmol/L (3.5-5.1) 04/06/18 05:25 Chloride 96 mmol/L (98-107) L 04/06/18 05:25 Carbon Dioxide 30.2 mmol/L (21-32) 04/06/18 05:25 BUN 4 mg/dL (7-18) L 04/06/18 05:25 Creatinine 0.37 mg/dL (0.70-1.30) L 04/06/18 05:25 Est GFR (MDRD) Af Amer > 60 (>60) 04/06/18 05:25 Est GFR (MDRD) Non-Af > 60 (>60) 04/06/18 05:25 Glucose 97 mg/dL (65-99) 04/06/18 05:25 Calcium 9.1 mg/dL (8.5-10.1) 04/06/18 05:25 Corrected Calcium TNP 04/06/18 05:25 Total Bilirubin 0.30 mg/dL (0.2-1.0) 04/06/18 05:25 AST 186 Units/L (15-37) H 04/06/18 05:25 ALT 358 Units/L (12-78) H 04/06/18 05:25 Alkaline Phosphatase 62 Units/L (46-116) 04/06/18 05:25 Total Protein 9.2 g/dL (6.4-8.2) H 04/06/18 05:25 Albumin 3.4 g/dL (3.4-5.0) 04/06/18 05:25 Globulin 5.8 g/dL (2.5-4.5) H 04/06/18 05:25 Albumin/Globulin Ratio 0.6 Ratio (1.1-2.1) L 04/06/18 05:25 Vancomycin Trough 12.1 ug/mL (15-20) L 04/05/18 21:09
[2018-04-06 20:52] LABS: CREATININE 0.31 mg/dL (0.70-1.30); VANCOMYCIN,TROUGH 13.1 ug/mL (15-20)
[2018-04-07] MEDS: VANCOMYCIN HCL 1 GM VIAL 1 GM in D5W 250 ML IV 250 ML IV SCH ×3 (05:53→22:41)
[2018-04-07] MEDS: CARBAMAZEPINE GT SCH ×2 (08:57→21:53)
[2018-04-07] MEDS: PHENOBARBITAL TAB 15 MG (16.2MG) PO SCH ×2 (08:57→21:53)
[2018-04-07] MEDS: KEPPRA ORAL SOLN PO SCH ×2 (08:57→21:53)
[2018-04-07] MEDS: NS 500 ML IV 500 ML IV PRN (11:40)
[2018-04-07 22:39] LABS: CREATININE 0.48 mg/dL (0.70-1.30); VANCOMYCIN,TROUGH 10.6 ug/mL (15-20)
[2018-04-08] MEDS: VANCOMYCIN HCL 1 GM VIAL 1 GM in D5W 250 ML IV 250 ML IV SCH ×3 (05:38→22:41)
[2018-04-08] MEDS: NS 500 ML IV 500 ML IV PRN (07:56)
[2018-04-08] MEDS: PHENOBARBITAL TAB 15 MG (16.2MG) PO SCH ×2 (10:14→21:43)
[2018-04-08] MEDS: CARBAMAZEPINE GT SCH ×2 (10:16→21:42)
[2018-04-08] MEDS: KEPPRA ORAL SOLN PO SCH ×2 (10:16→21:43)
[2018-04-08 21:18] LABS: CREATININE 0.33 mg/dL (0.70-1.30); VANCOMYCIN,TROUGH 13.6 ug/mL (15-20)
[2018-04-09] MEDS: VANCOMYCIN HCL 1 GM VIAL 1 GM in D5W 250 ML IV 250 ML IV SCH (05:48)
[2018-04-09 07:16] LABS: BASOPHILS # (AUTO) 0.1 X10^3/uL (0.0-0.1); BASOPHILS % (AUTO) 1.4 % (0.2-1.0); EOSINOPHILS % (AUTO) 0.7 % (0.9-2.9); HEMATOCRIT 35.3 % (42.0-54.0); HEMOGLOBIN 12.3 g/dL (13.5-18.0); LYMPHOCYTES # (AUTO) 1.6 X10^3/uL (1.3-2.9); LYMPHOCYTES % (AUTO) 32.1 % (21.0-51.0); MEAN CORPUSCULAR HEMOGLOBIN 32.9 pg (27.0-34.0); MEAN CORPUSCULAR HGB CONC 34.9 g/dL (33.0-35.0); MEAN CORPUSCULAR VOLUME 94.2 fL (80.0-100.0); MEAN PLATELET VOLUME 6.8 fL (7.4-11.0); MONOCYTES # (AUTO) 0.6 x10^3/uL (0.3-0.8); MONOCYTES % (AUTO) 12.9 % (0.0-13.0); NEUTROPHILS # (AUTO) 2.6 x10^3/uL (2.2-4.8); NEUTROPHILS % (AUTO) 52.9 % (42.0-75.0); PLATELET COUNT 578 X10^3/uL (150.0-450.0); RED BLOOD COUNT 3.74 X10^6/uL (4.7-6.0); RED CELL DISTRIBUTION WIDTH 13.8 % (11.6-16.5); WHITE BLOOD COUNT 4.9 X10^3/uL (3.6-10.0)
[2018-04-09 07:18] LABS: ALANINE AMINOTRANSFERASE 312 Units/L (12-78); ALBUMIN 3.6 g/dL (3.4-5.0); ALKALINE PHOSPHATASE 63 Units/L (46-116); ASPARTATE AMINO TRANSFERASE 128 Units/L (15-37); BLOOD UREA NITROGEN 5 mg/dL (7-18); CALCIUM 8.3 mg/dL (8.5-10.1); CARBON DIOXIDE 23.4 mmol/L (21-32); CHLORIDE 92 mmol/L (98-107); COR NA(FOR HYPERGLY) 133 mmol/L (136-145); CREATININE 0.44 mg/dL (0.70-1.30); SODIUM 132 mmol/L (136-145); TOTAL PROTEIN 9.4 g/dL (6.4-8.2); eGFR BLACK RACES > 60 (>60); eGFR NON BLACK RACES > 60 (>60)
[2018-04-09] MEDS: PHENOBARBITAL TAB 15 MG (16.2MG) PO SCH ×2 (10:17→21:41)
[2018-04-09] MEDS: KEPPRA ORAL SOLN PO SCH ×2 (10:18→21:41)
[2018-04-09] MEDS: CARBAMAZEPINE GT SCH ×2 (10:18→21:41)
[2018-04-09] MEDS: VANCOMYCIN HCL IV SCH ×2 (14:17→22:24)
[2018-04-09] MEDS ORDERED: NS 100 ML IV 100 ML IV ONE (14:17)
[2018-04-09] MEDS: [UNRECOGNIZED DRUG - OTHER] IV SCH ×2 (14:17→22:24)
[2018-04-10] MEDS: VANCOMYCIN HCL IV SCH ×2 (05:21→14:38)
[2018-04-10] MEDS: [UNRECOGNIZED DRUG - OTHER] IV SCH ×2 (05:21→14:38)
[2018-04-10] MEDS: CARBAMAZEPINE GT SCH ×2 (10:12→22:35)
[2018-04-10] MEDS: KEPPRA ORAL SOLN PO SCH ×2 (10:13→22:35)
[2018-04-10] MEDS: PHENOBARBITAL TAB 15 MG (16.2MG) PO SCH ×2 (10:47→22:36)
[2018-04-10] MEDS ORDERED: NS 250 ML IV 250 ML IV ONE (13:53)
[2018-04-10] MEDS ORDERED: VANCOMYCIN HCL 1 GM VIAL ONE (13:53)
[2018-04-10 14:14] LABS: CREATININE 0.41 mg/dL (0.70-1.30)
[2018-04-10 14:34] LABS: VANCOMYCIN,TROUGH 25.1 ug/mL (15-20)
[2018-04-10] MEDS ORDERED: PHARMACY COMMENT IV SCH (21:30)
[2018-04-10] MEDS: VANCOMYCIN HCL 1 GM VIAL 1 GM in D5W 250 ML IV 250 ML IV SCH (22:58)
[2018-04-11] MEDS: VANCOMYCIN HCL 1 GM VIAL 1 GM in D5W 250 ML IV 250 ML IV SCH ×3 (05:49→21:34)
[2018-04-11] MEDS: CARBAMAZEPINE GT SCH ×2 (08:19→21:40)
[2018-04-11] MEDS: KEPPRA ORAL SOLN PO SCH ×2 (08:19→21:40)
[2018-04-11] MEDS: PHENOBARBITAL TAB 15 MG (16.2MG) PO SCH ×2 (09:42→21:36)
[2018-04-11 14:05] LABS: CREATININE 0.38 mg/dL (0.70-1.30); VANCOMYCIN,TROUGH 17.1 ug/mL (15-20)
[2018-04-12 06:27] LABS: CREATININE 0.32 mg/dL (0.70-1.30); VANCOMYCIN,TROUGH 13.1 ug/mL (15-20)
[2018-04-12] MEDS: VANCOMYCIN HCL 1 GM VIAL 1 GM in D5W 250 ML IV 250 ML IV SCH ×3 (06:34→21:06)
[2018-04-12] MEDS: PHENOBARBITAL TAB 15 MG (16.2MG) PO SCH ×2 (09:35→20:55)
[2018-04-12] MEDS: CARBAMAZEPINE GT SCH ×2 (09:41→21:07)
[2018-04-12] MEDS: KEPPRA ORAL SOLN PO SCH ×2 (09:42→20:59)
[2018-04-12] MEDS ORDERED: D5W 250 ML IV 250 ML IV ONE (20:39)
[2018-04-13] MEDS: VANCOMYCIN HCL 1 GM VIAL 1 GM in D5W 250 ML IV 250 ML IV SCH ×3 (05:56→22:34)
[2018-04-13] MEDS: CARBAMAZEPINE GT SCH ×2 (10:15→22:34)
[2018-04-13] MEDS: KEPPRA ORAL SOLN PO SCH ×2 (10:15→22:34)
[2018-04-13] MEDS: PHENOBARBITAL TAB 15 MG (16.2MG) PO SCH ×2 (10:15→22:16)
[2018-04-13 14:47] LABS: CREATININE 0.38 mg/dL (0.70-1.30); VANCOMYCIN,TROUGH 10.2 ug/mL (15-20)
[2018-04-13] MEDS ORDERED: DEXTROSE 5% 500 ML IV ONE (20:46)
[2018-04-14] MEDS: VANCOMYCIN HCL 1 GM VIAL 1 GM in D5W 250 ML IV 250 ML IV SCH ×3 (05:26→23:01)
[2018-04-14 06:22] LABS: ALANINE AMINOTRANSFERASE 168 Units/L (12-78); ALBUMIN 3.4 g/dL (3.4-5.0); ALKALINE PHOSPHATASE 52 Units/L (46-116); ASPARTATE AMINO TRANSFERASE 51 Units/L (15-37); BLOOD UREA NITROGEN 5 mg/dL (7-18); CALCIUM 8.5 mg/dL (8.5-10.1); CARBON DIOXIDE 31.8 mmol/L (21-32); CHLORIDE 95 mmol/L (98-107); SODIUM 135 mmol/L (136-145); TOTAL PROTEIN 8.7 g/dL (6.4-8.2); eGFR BLACK RACES > 60 (>60); eGFR NON BLACK RACES > 60 (>60)
[2018-04-14 07:37] LABS: BASOPHILS # (AUTO) 0.1 X10^3/uL (0.0-0.1); BASOPHILS % (AUTO) 1.1 % (0.2-1.0); EOSINOPHILS % (AUTO) 0.4 % (0.9-2.9); HEMATOCRIT 36.3 % (42.0-54.0); HEMOGLOBIN 12.6 g/dL (13.5-18.0); LYMPHOCYTES # (AUTO) 2.1 X10^3/uL (1.3-2.9); LYMPHOCYTES % (AUTO) 27.1 % (21.0-51.0); MEAN CORPUSCULAR HEMOGLOBIN 32.8 pg (27.0-34.0); MEAN CORPUSCULAR HGB CONC 34.8 g/dL (33.0-35.0); MEAN CORPUSCULAR VOLUME 94.4 fL (80.0-100.0); MEAN PLATELET VOLUME 7.8 fL (7.4-11.0); MONOCYTES # (AUTO) 0.9 x10^3/uL (0.3-0.8); MONOCYTES % (AUTO) 11.7 % (0.0-13.0); NEUTROPHILS # (AUTO) 4.7 x10^3/uL (2.2-4.8); NEUTROPHILS % (AUTO) 59.7 % (42.0-75.0); PLATELET COUNT 376 X10^3/uL (150.0-450.0); RED BLOOD COUNT 3.85 X10^6/uL (4.7-6.0); RED CELL DISTRIBUTION WIDTH 13.4 % (11.6-16.5); WHITE BLOOD COUNT 7.8 X10^3/uL (3.6-10.0)
[2018-04-14] MEDS: CARBAMAZEPINE GT SCH ×2 (09:10→21:07)
[2018-04-14] MEDS: PHENOBARBITAL TAB 15 MG (16.2MG) PO SCH ×2 (09:10→21:08)
[2018-04-14] MEDS: KEPPRA ORAL SOLN PO SCH ×2 (09:10→21:07)
[2018-04-14 21:40] LABS: CREATININE 0.27 mg/dL (0.70-1.30); VANCOMYCIN,TROUGH 13.2 ug/mL (15-20)
[2018-04-15] MEDS: VANCOMYCIN HCL 1 GM VIAL 1 GM in D5W 250 ML IV 250 ML IV SCH ×3 (06:16→21:13)
[2018-04-15 07:22] LABS: ALANINE AMINOTRANSFERASE 146 Units/L (12-78); ALBUMIN 3.1 g/dL (3.4-5.0); ALKALINE PHOSPHATASE 51 Units/L (46-116); ASPARTATE AMINO TRANSFERASE 53 Units/L (15-37); BLOOD UREA NITROGEN 4 mg/dL (7-18); CALCIUM 8.1 mg/dL (8.5-10.1); CHLORIDE 95 mmol/L (98-107); COR CA(FOR HYPOALB) 8.8 mg/dL (8.5-10.1); SODIUM 133 mmol/L (136-145); TOTAL PROTEIN 8.3 g/dL (6.4-8.2); eGFR BLACK RACES > 60 (>60); eGFR NON BLACK RACES > 60 (>60)
[2018-04-15 07:38] LABS: BASOPHILS # (AUTO) 0.1 X10^3/uL (0.0-0.1)
[2018-04-15 08:17] LABS: EOSINOPHILS % (AUTO) 0.3 % (0.9-2.9); HEMATOCRIT 35.1 % (42.0-54.0); LYMPHOCYTES # (AUTO) 2.3 X10^3/uL (1.3-2.9); LYMPHOCYTES % (AUTO) 35.1 % (21.0-51.0); MEAN CORPUSCULAR HEMOGLOBIN 32.1 pg (27.0-34.0); MEAN CORPUSCULAR HGB CONC 34.1 g/dL (33.0-35.0); MEAN CORPUSCULAR VOLUME 94.3 fL (80.0-100.0); MEAN PLATELET VOLUME 7.6 fL (7.4-11.0); MONOCYTES # (AUTO) 0.6 x10^3/uL (0.3-0.8); MONOCYTES % (AUTO) 9.6 % (0.0-13.0); NEUTROPHILS # (AUTO) 3.5 x10^3/uL (2.2-4.8); PLATELET COUNT 325 X10^3/uL (150.0-450.0); RED BLOOD COUNT 3.73 X10^6/uL (4.7-6.0); RED CELL DISTRIBUTION WIDTH 13.5 % (11.6-16.5); WHITE BLOOD COUNT 6.5 X10^3/uL (3.6-10.0)
[2018-04-15] MEDS: PHENOBARBITAL TAB 15 MG (16.2MG) PO SCH ×2 (09:34→21:13)
[2018-04-15] MEDS: CARBAMAZEPINE GT SCH ×2 (09:34→21:13)
[2018-04-15] MEDS: KEPPRA ORAL SOLN PO SCH ×2 (09:35→21:13)
[2018-04-16 05:38] LABS: BASOPHILS % (AUTO) 1.3 % (0.2-1.0); EOSINOPHILS % (AUTO) 0.5 % (0.9-2.9); HEMATOCRIT 37.9 % (42.0-54.0); HEMOGLOBIN 13.1 g/dL (13.5-18.0); LYMPHOCYTES # (AUTO) 1.3 X10^3/uL (1.3-2.9); MEAN CORPUSCULAR HEMOGLOBIN 32.7 pg (27.0-34.0); MEAN CORPUSCULAR HGB CONC 34.6 g/dL (33.0-35.0); MEAN CORPUSCULAR VOLUME 94.5 fL (80.0-100.0); MEAN PLATELET VOLUME 7.5 fL (7.4-11.0); MONOCYTES # (AUTO) 0.3 x10^3/uL (0.3-0.8); MONOCYTES % (AUTO) 7.7 % (0.0-13.0); NEUTROPHILS # (AUTO) 1.8 x10^3/uL (2.2-4.8); NEUTROPHILS % (AUTO) 52.5 % (42.0-75.0); PLATELET COUNT 335 X10^3/uL (150.0-450.0); RED BLOOD COUNT 4.01 X10^6/uL (4.7-6.0); RED CELL DISTRIBUTION WIDTH 13.4 % (11.6-16.5); WHITE BLOOD COUNT 3.5 X10^3/uL (3.6-10.0)
[2018-04-16 05:50] LABS: ALANINE AMINOTRANSFERASE 141 Units/L (12-78); ALBUMIN 3.2 g/dL (3.4-5.0); ALKALINE PHOSPHATASE 49 Units/L (46-116); ASPARTATE AMINO TRANSFERASE 51 Units/L (15-37); BLOOD UREA NITROGEN 3 mg/dL (7-18); CALCIUM 8.4 mg/dL (8.5-10.1); CARBON DIOXIDE 29.6 mmol/L (21-32); CHLORIDE 97 mmol/L (98-107); CREATININE 0.39 mg/dL (0.70-1.30); SODIUM 135 mmol/L (136-145); TOTAL PROTEIN 8.4 g/dL (6.4-8.2); eGFR BLACK RACES > 60 (>60); eGFR NON BLACK RACES > 60 (>60)
[2018-04-16 05:55] LABS: CREATININE 0.12 mg/dL (0.70-1.30); VANCOMYCIN,TROUGH 16.2 ug/mL (15-20)
[2018-04-16] MEDS: VANCOMYCIN HCL 1 GM VIAL 1 GM in D5W 250 ML IV 250 ML IV SCH ×3 (06:07→21:18)
[2018-04-16] MEDS ORDERED: XYLOCAINE 1 % (PLAIN) ONE (10:01)
[2018-04-16] MEDS ORDERED: FENTANYL INJ 100 mcg ONE (11:35)
[2018-04-16] MEDS: NS 500 ML IV 500 ML IV PRN (12:02)
[2018-04-16] MEDS ORDERED: BACTROBAN OINT ONE (12:41)
[2018-04-16] MEDS ORDERED: XYLOCAINE 2 % (PLAIN) ONE (14:00)
[2018-04-16] MEDS ORDERED: DIPRIVAN VIAL ONE (14:00)
[2018-04-16] MEDS: KEPPRA ORAL SOLN PO SCH ×2 (14:03→23:23)
[2018-04-16] MEDS: PHENOBARBITAL TAB 15 MG (16.2MG) PO SCH ×2 (14:03→23:23)
[2018-04-16] MEDS: CARBAMAZEPINE GT SCH ×2 (14:04→23:23)
[2018-04-17] MEDS: VANCOMYCIN HCL 1 GM VIAL 1 GM in D5W 250 ML IV 250 ML IV SCH ×3 (05:51→21:56)
[2018-04-17 06:07] LABS: BASOPHILS % (AUTO) 0.8 % (0.2-1.0); EOSINOPHILS % (AUTO) 1.2 % (0.9-2.9); HEMATOCRIT 36.6 % (42.0-54.0); HEMOGLOBIN 12.5 g/dL (13.5-18.0); LYMPHOCYTES # (AUTO) 1.4 X10^3/uL (1.3-2.9); MEAN CORPUSCULAR HEMOGLOBIN 32.1 pg (27.0-34.0); MEAN CORPUSCULAR HGB CONC 34.2 g/dL (33.0-35.0); MEAN PLATELET VOLUME 7.9 fL (7.4-11.0); MONOCYTES # (AUTO) 0.3 x10^3/uL (0.3-0.8); MONOCYTES % (AUTO) 9.6 % (0.0-13.0); NEUTROPHILS # (AUTO) 1.8 x10^3/uL (2.2-4.8); NEUTROPHILS % (AUTO) 50.4 % (42.0-75.0); PLATELET COUNT 314 X10^3/uL (150.0-450.0); RED BLOOD COUNT 3.89 X10^6/uL (4.7-6.0); RED CELL DISTRIBUTION WIDTH 13.2 % (11.6-16.5); WHITE BLOOD COUNT 3.6 X10^3/uL (3.6-10.0)
[2018-04-17 06:23] LABS: ALANINE AMINOTRANSFERASE 127 Units/L (12-78); ALBUMIN 3.2 g/dL (3.4-5.0); ALKALINE PHOSPHATASE 47 Units/L (46-116); ASPARTATE AMINO TRANSFERASE 44 Units/L (15-37); BLOOD UREA NITROGEN 3 mg/dL (7-18); CALCIUM 8.4 mg/dL (8.5-10.1); CARBON DIOXIDE 28.6 mmol/L (21-32); CHLORIDE 97 mmol/L (98-107); CREATININE 0.27 mg/dL (0.70-1.30); SODIUM 135 mmol/L (136-145); TOTAL PROTEIN 8.1 g/dL (6.4-8.2); eGFR BLACK RACES > 60 (>60); eGFR NON BLACK RACES > 60 (>60)
[2018-04-17] MEDS ORDERED: XYLOCAINE 1 % (PLAIN) ONE (07:28)
[2018-04-17] MEDS ORDERED: NS 500 ML IV 500 ML IV ONE (08:12)
[2018-04-17] MEDS ORDERED: NS IRRIGATION 1000 ML 1,000 ML with BACITRACIN VIAL 50,000 UNIT IR ONE ×2 (08:59)
--- NOTE | 2018-04-17 10:10 | RAD ---
HISTORY: Postop Port-A-Cath Study: AP portable chest Comparison: 04/02/2018 Findings: The lungs are clear. The heart size is normal. Moderately severe to severe convex right thoracolumb ar scoliosis is noted. No acute bony abnormalities are identified. There has been placement of a ri ght-sided Port-A-Cath. The tip appears to be projected in the region of the right atrium. No compli cating features are noted. The right-sided PICC line has been removed. There is a moderate to large amount of bowel gas IMPRESSION: 1. Interval placement of a right-sided Port-A-Cath. The tip appears to be at the level of the mid r ight atrium. 2. Otherwise, no radiographic evidence of acute cardiopulmonary disease. Reported By:
[2018-04-17] MEDS: PHENOBARBITAL TAB 15 MG (16.2MG) PO SCH ×2 (10:40→21:56)
[2018-04-17] MEDS: KEPPRA ORAL SOLN PO SCH ×2 (10:41→21:57)
[2018-04-17] MEDS: CARBAMAZEPINE GT SCH ×2 (10:42→21:56)
[2018-04-17 14:56] LABS: CREATININE 0.32 mg/dL (0.70-1.30); VANCOMYCIN,TROUGH 15.5 ug/mL (15-20)
--- NOTE | 2018-04-17 18:13 | PCM.PROG ---
Progress Note - Progress Note for Day of Date: 04/15/18 - Subjective Subjective: IS SWINGBED STATUS FOR ANTIBIOTIC THERAPY. HE IS LYING IN BED ON MORNING ROUNDS IN NO APPARENT DISTRESS. MOTHER IS AT BEDSIDE AND REPORTS NO COMPLAINTS. HE IS HEMODYNAMICALLY STABLE TODAY. HE CONTINUES TO RECEIVE VANCOMYCIN 1GM IV Q8H FOR BACTEREMIA AND PAC LINE SEPSIS. WE WILL CONTINUE WITH CURRENT PLAN OF CARE TODAY. - Past Medical Family Social History Past Med/Fam/Surg Hx: No changes since H&P Allergies: Allergies Sulfa (Sulfonamide Antibiotics) [SULFA] Allergy (Verified 09/10/17 00:14) - Review of Systems ROS: No change since H&P - Vital Signs and I&O's Vital Signs: Temperature 99.4 F Pulse Rate [Right Radial] 94 Pulse Rate 100 Respiratory Rate 18 Blood Pressure [left leg] 114/69 Blood Pressure [Left Arm] 129/73 Blood Pressure [Left Calf] 100/58 Blood Pressure 126/85 O2 Sat by Pulse Oximetry 100 Intake and Output: Intake & Output 04/15/18 04/16/18 04/17/18 04/18/18 11:59 11:59 11:59 11:59 Intake Total 375 030 127 0310 Output Total 15 Balance 375 031 529 9419 - Physical Exam Oriented: Not Oriented Eyes: Normal Ear: Normal Nose: Normal Throat: Normal Respiratory: Normal Cardiovascular: Normal : Normal Auscultation: Bowel Sounds: Normal Tenderness: Normal Skin: Normal Musculoskeletal: Normal Psychiatric: Normal Mood Description: Calm Affect: Normal Speech Pattern: Aphasic - Laboratory and Diagnostics Result Diagrams: 04/17/18 05:25 04/17/18 14:21 Labs: Laboratory WBC 3.6 X10^3/uL (3.6-10.0) 04/17/18 05:25 RBC 3.89 X10^6/uL (4.7-6.0) L 04/17/18 05:25 Hgb 12.5 g/dL (13.5-18.0) L 04/17/18 05:25 Hct 36.6 % (42.0-54.0) L 04/17/18 05:25 MCV 94.0 fL (80.0-100.0) 04/17/18 05:25 MCH 32.1 pg (27.0-34.0) 04/17/18 05:25 MCHC 34.2 g/dL (33.0-35.0) 04/17/18 05:25 RDW 13.2 % (11.6-16.5) 04/17/18 05:25 Plt Count 314 X10^3/uL (150.0-450.0) 04/17/18 05:25 Plt Count Comment Adequate (ADEQUATE) 04/06/18 05:25 MPV 7.9 fL (7.4-11.0) 04/17/18 05:25 Neut % (Auto) 50.4 % (42.0-75.0) 04/17/18 05:25 Lymph % (Auto) 38.0 % (21.0-51.0) 04/17/18 05:25 [place] % (Auto) 9.6 % (0.0-13.0) 04/17/18 05:25 Eos % (Auto) 1.2 % (0.9-2.9) 04/17/18 05:25 Baso % (Auto) 0.8 % (0.2-1.0) 04/17/18 05:25 Neut # (Auto) 1.8 x10^3/uL (2.2-4.8) L 04/17/18 05:25 Lymph # (Auto) 1.4 X10^3/uL (1.3-2.9) 04/17/18 05:25 [place] # (Auto) 0.3 x10^3/uL (0.3-0.8) 04/17/18 05:25 Eos # (Auto) 0.0 x10^3/uL (0.0-0.2) 04/17/18 05:25 Baso # (Auto) 0.0 X10^3/uL (0.0-0.1) 04/17/18 05:25 Absolute Nucleated RBC 0.0 /100WBC 04/17/18 05:25 Plt Morphology Comment Normal (NORMAL) 04/06/18 05:25 RBC Morphology Normal (NORMAL) 04/06/18 05:25 Sodium 135 mmol/L (136-145) L 04/17/18 05:25 Corrected Sodium TNP 04/17/18 05:25 Potassium 3.4 mmol/L (3.5-5.1) L 04/17/18 05:25 Chloride 97 mmol/L (98-107) L 04/17/18 05:25 Carbon Dioxide 28.6 mmol/L (21-32) 04/17/18 05:25 BUN 3 mg/dL (7-18) L 04/17/18 05:25 Creatinine 0.32 mg/dL (0.70-1.30) L 04/17/18 14:21 Est GFR (MDRD) Af Amer > 60 (>60) 04/17/18 05:25 Est GFR (MDRD) Non-Af > 60 (>60) 04/17/18 05:25 Glucose 81 mg/dL (65-99) 04/17/18 05:25 Calcium 8.4 mg/dL (8.5-10.1) L 04/17/18 05:25 Corrected Calcium 9.0 mg/dL (8.5-10.1) 04/17/18 05:25 Total Bilirubin 0.40 mg/dL (0.2-1.0) 04/17/18 05:25 AST 44 Units/L (15-37) H 04/17/18 05:25 ALT 127 Units/L (12-78) H 04/17/18 05:25 Alkaline Phosphatase 47 Units/L (46-116) 04/17/18 05:25 Total Protein 8.1 g/dL (6.4-8.2) 04/17/18 05:25 Albumin 3.2 g/dL (3.4-5.0) L 04/17/18 05:25 Globulin 4.9 g/dL (2.5-4.5) H 04/17/18 05:25 Albumin/Globulin Ratio 0.7 Ratio (1.1-2.1) L 04/17/18 05:25 Vancomycin Trough 15.5 ug/mL (15-20) 04/17/18 14:21 - Plan (1) Bacteremia Status: Acute Plan: IV VANCOMYCIN X 14 DAYS, THEN SURGICAL CONSULT FOR PORT A CATH REPLACEMENT (2) Bacteremia associated with intravascular line Status: Acute (3) Gastrostomy tube in place Status: Acute (4) Seizure disorder Status: Acute (5) 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
[2018-04-18] MEDS: VANCOMYCIN HCL 1 GM VIAL 1 GM in D5W 250 ML IV 250 ML IV SCH (05:36)
[2018-04-18] MEDS ORDERED: POTASSIUM CHL 40 MEQ/NS 0.45% 500 ML IV PRN (08:03)
[2018-04-18] MEDS ORDERED: POTASSIUM CHLORIDE LIQ 20 MEQ UDC PO PRN (08:03)
[2018-04-18] MEDS ORDERED: K-LYTE EFFERVESCENT PO PRN (08:03)
[2018-04-18] MEDS ORDERED: MAGNESIUM SULFATE 1 GM/100 mL PREMIX 1 GM/100 ML BAG IV PRN (08:03)
[2018-04-18] MEDS ORDERED: POTASSIUM CHL 60 MEQ/NS 0.45% 500 ML IV PRN (08:03)
[2018-04-18] MEDS: K-RIDER 10 MEQ/NS 100 ML 10 MEQ/100 ML BAG IV PRN ×2 (09:02→10:00)
[2018-04-18] MEDS: KEPPRA ORAL SOLN PO SCH (09:03)
[2018-04-18] MEDS: PHENOBARBITAL TAB 15 MG (16.2MG) PO SCH (09:03)
[2018-04-18] MEDS: CARBAMAZEPINE GT SCH (09:03)
[2018-04-18] MEDS: NS 500 ML IV 500 ML IV PRN (09:03)
[2018-04-18 11:43] VITALS: BP 144/80
[2018-04-19] MEDS ORDERED: VERSED ONE (15:04)
[2018-04-19] MEDS ORDERED: XYLOCAINE 1 % (PLAIN) ONE (15:04)
[2018-04-19] MEDS ORDERED: DIPRIVAN VIAL ONE (15:04)
[2018-04-19] MEDS ORDERED: KETALAR ONE (15:04)
== END 2018-04-18 14:10 | disposition home or self-care (01) | DRG 949 ==
LOC: ICU 11:30 → MED/SURG 04-04 19:00
PROVIDERS: ADMIT Internal Medicine; ATTEND Internal Medicine
PROC: 0JPT0WZ Removal of Totally Implantable Vascular Access Device from Trunk Subcutaneous Tissue and Fascia, Open Approach (ICD-10-PCS; principal; 2018-04-07)
PROC: 05HY33Z Insertion of Infusion Device into Upper Vein, Percutaneous Approach (ICD-10-PCS; 2018-04-16)
PROC: 0JH60XZ Insertion of Tunneled Vascular Access Device into Chest Subcutaneous Tissue and Fascia, Open Approach (ICD-10-PCS; 2018-04-17)
PROC: 05HM33Z Insertion of Infusion Device into Right Internal Jugular Vein, Percutaneous Approach (ICD-10-PCS; 2018-04-17)
PROC: B543ZZA Ultrasonography of Right Jugular Veins, Guidance (ICD-10-PCS; 2018-04-17)
DX: Z51.89 Encounter for other specified aftercare (principal); G40.802 Other epilepsy, not intractable, without status epilepticus; R78.81 Bacteremia; A41.89 Other specified sepsis; G80.2 Spastic hemiplegic cerebral palsy; T82.7XXA Infection and inflammatory reaction due to other cardiac and vascular devices, implants and grafts, initial encounter; Z93.1 Gastrostomy status; Z74.01 Bed confinement status; I87.2 Venous insufficiency (chronic) (peripheral)
CPT/HCPCS: 36415; 36556; 71045; 76000; 80053; 80202; 82565; 83735; 85025; 93005; 93010; A4222; J2001; J2250; J3010; J3370; J3480; J3490